=== PATIENT | female | born 1950 | race Caucasian/White ===

== ENCOUNTER 2017-02-04 02:01 | Inpatient (IN) ==
--- OUTSIDE RECORDS SUMMARY | 2017-02-04 02:11 | External Medical Summary | Referral Summary ---
:1950 Author Organization [facility] Address [address] [place] [address] Care Team Providers Name Role Phone Arnol Feliz Primary Care Physician Encounter VC Date(s): 02/21/16 - 02/21/16 [facility] [address] [place] [address] Discharge Disposition: 01-Home or Self Care Attending Physician: Mando Sam MD Admitting Physician: Mando Sam MD Vital Signs Most recent to oldest [Reference Range]: 1 Temperature Temporal Artery [36.3-37.8 degC] 36.7 degC (02/21/16 8:34 AM) Apical Heart Rate [60-100 bpm] 56 bpm *LOW* (02/21/16 8:34 AM) Heart Rate Monitored [60-100 bpm] 64 bpm (02/21/16 2:30 PM) Respiratory Rate [14-20 br/min] 13 br/min *LOW* (02/21/16 2:30 PM) Blood Pressure [90-140/60-90 mmHg] 113/73 mmHg (02/21/16 2:30 PM) Mean Arterial Pressure, Cuff 75 mmHg (02/21/16 2:30 PM) SpO2 94 % (02/21/16 2:30 PM) Remote Telemetry Initiated (02/21/16 10:45 AM) Problem List Condition Effective Dates Status Health Status Informant Abnormality of gait(Confirmed) 05/09/11 Active Acute pain(Confirmed) Active Allergies(Confirmed) Active Allergic rhinitis/hay fever(Confirmed) Active Anxiety disorder(Confirmed) Active CVA (cerebrovascular Active accident)(Confirmed) CAD (coronary artery Active disease)(Confirmed) Depression(Confirmed) Active Thyroid disease/goiter(Confirmed) Active Dyslipidemia(Confirmed) Active Dysplasia of vagina(Confirmed) Active Dysuria(Confirmed) Active Fibromyalgia(Confirmed) Active Gastric ulcer with hemorrhage but Active without obstruction(Confirmed) Stress incontinence(Confirmed) Active Headache(Confirmed) 05/09/11 Active Heart disease(Confirmed) Active History of abnormal cervical Pap Active smear(Confirmed)1 Hyperlipidemia(Confirmed) Active Hypertension(Confirmed) Active Hypothyroidism(Confirmed) Active Impaired skin integrity(Confirmed)2 Active Inflammatory neuropathy(Confirmed) Active Irregular heart rhythm(Confirmed) Active Irritable colon(Confirmed) Active Hypertonicity of bladder(Confirmed) Active Migraine headache without Active aura(Confirmed) Muscle weakness 05/09/11 Active (generalized)(Confirmed)3 Dependence on nicotine from Active cigarettes(Confirmed) Osteoarthrosis(Confirmed) Active PVD (peripheral vascular disease) with Active claudication(Confirmed) Rosacea (disorder)(Confirmed) Active Disturbance of skin Active sensation(Confirmed)4 Solar degeneration(Confirmed) Active S/P coronary artery stent Active placement(Confirmed) Tension headache(Confirmed) Active Tietze's disease(Confirmed) Active Tobacco use disorder(Confirmed) Active TIA (transient ischemic 09/09/11 Active attack)(Confirmed) Varicella without Active complication(Confirmed) 1post [id number] added automatically by system based on initiation of Impaired Skin Integrity Plan of Ovyv0Co side muscle [id number] sided numbness Allergies, Adverse Reactions, Alerts Substance Reaction Severity Status tetracycline Adverse Reaction Active Stomach Pain Medications acetaminophen 325 mg oral tablet 650 mg 2 tabs, Oral, q6hr, Pain Mild (1-3), 0 Refill(s) Start Date: 12/12/15 Status: Orderedalbuterol CFC free 90 mcg/inh inhalation aerosol 2-4 puffs, Inhalation, q4hr, as needed for wheezing, 0 Refill(s) Start Date: 12/27/14 Status: Orderedaspirin 81 mg oral tablet, chewable 1 tabs, Oral, Daily Start Date: 12/29/13 Status: Orderedbaclofen 10 mg oral tablet See Instructions, TAKE ONE TABLET BY MOUTH THREE TIMES DAILY, # 90 tabs, eRx: [id number], TAKE ONE TABLET BY MOUTH THREE TIMES DAILY Start Date: 02/01/16 Status: Orderedbumetanide 1 mg oral tablet See Instructions, TAKE ONE TABLET BY MOUTH ONCE DAILY, # 90 tabs, eRx: [id number], TAKE ONE TABLET BY MOUTH ONCE DAILY Start Date: 11/21/15 Status: OrderedbusPIRone 10 mg oral tablet 20 mg 2 tabs, Oral, TID, # 270 tabs, 0 Refill(s) Start Date: 11/16/14 Status: Orderedgabapentin 100 mg oral capsule See Instructions, 3 caps oral in the morning and 4 caps oral in the evening., # 210 tabs, 0 Refill(s), Pharmacy: [place] [facility] [id number], 3 caps oral in the morning and 4 caps oral in the evening. Start Date: 02/07/16 Status: OrderedhydrOXYzine 50 mg, Oral, BID, 0 Refill(s) Start Date: 08/17/15 Status: Orderedibuprofen 800 mg oral tablet See Instructions, TAKE ONE TABLET BY MOUTH TWICE DAILY, # 60 tabs, eRx: [place] [id number], TAKEONE TABLET BY MOUTH TWICE DAILY Start Date: 02/01/16 Status: Orderedlevothyroxine 88 mcg (0.088 mg) oral tablet See Instructions, TAKE ONE TABLET BY MOUTH ONCE DAILY, # 90 tabs, eRx: [place] [id number] Start Date: 02/13/16 Status: OrderedLipitor 20 mg oral tablet 20 mg 1 tabs, Oral, Bedtime (once a day), 0 Refill(s) Start Date: 08/17/15 Status: OrderedLutein 6 mg oral capsule 6 mg 1 caps, Oral, Daily, # 30 caps, 0 Refill(s) Start Date: 12/09/15 Status: Orderedmetoprolol tartrate 12.5 mg tab 12.5 mg, Oral, BID, 0 Refill(s) Start Date: 08/17/15 Status: OrderedMisc Medication DOCOSAHEXANOIC ACID (DHA) 100MG BY MOUTH DAILY, 0 Refill(s) Start Date: 08/17/15 Status: OrderedNitro-Dur 0.1 mg/hr transdermal film, extended release 1 patches, Topical, Daily, apply qam ,off, # 30 patches, 3 Refill(s), Pharmacy: [place] [id number] Start Date: 02/21/16 Status: Orderednitroglycerin 0.4 mg sublingual tablet 0.4 mg 1 tabs, SubLingual, q5min, as needed for chest pain, # 100 tabs, 0 Refill (s) Start Date: 08/17/15 Status: Orderedoxybutynin 5 mg oral tablet See Instructions, TAKE ONE TABLET BY MOUTH TWICE DAILY, # 60 tabs, eRx: [id number], TAKEONE TABLET BY MOUTH TWICE DAILY Start Date: 02/01/16 Status: OrderedPlavix 75 mg oral tablet 75 mg 1 tabs, Oral, Daily, 0 Refill(s) Start Date: 08/17/15 Status: Orderedpotassium chloride 20 mEq oral tablet, extended release 20 mEq 1 tabs, Oral, Daily, # 30 tabs, 3 Refill(s), Pharmacy: [id number], 1 tabs Oral Daily Start Date: 02/21/16 Status: OrderedViibryd 20 mg, Oral, Daily, 0 Refill(s) Start Date: 12/31/13 Status: Ordered Results Hematology Most recent to oldest [Reference Range]: 1 WBC [4.8-10.8 10*3/uL] 7.4 10*3/uL (02/21/16 8:10 AM) RBC [4.00-5.20] 4.32 (02/21/16 8:10 AM) Hgb [12.0-16.0 gm/dL] 12.3 gm/dL (02/21/16 8:10 AM) Hct [37.0-47.0 %] 37.5 % (02/21/16 8:10 AM) MCV [82.0-99.0 fL] 86.8 fL (02/21/16 8:10 AM) MCH [27.0-32.0 pg] 28.5 pg (02/21/16 8:10 AM) MCHC [32.0-36.0 gm/dL] 32.8 gm/dL (02/21/16 8:10 AM) RDW [11.5-14.5 %] 13.9 % (02/21/16 8:10 AM) Platelet [150-400 10*3/uL] 214 10*3/uL (02/21/16 8:10 AM) MPV [9.4-12.4 fL] 9.5 fL (02/21/16 8:10 AM) Chemistry Most recent to oldest [Reference Range]: 1 Sodium Lvl [136-144 mEq/L] 143 mEq/L (02/21/16 8:10 AM) Potassium Lvl [3.6-5.1 mEq/L] 3.3 mEq/L *LOW* (02/21/16 8:10 AM) Chloride [99-109 mEq/L] 107 mEq/L (02/21/16 8:10 AM) CO2 [22-32 mEq/L] 28 mEq/L (02/21/16 8:10 AM) AGAP [3-20] 8 (02/21/16 8:10 AM) BUN [4-20 mg/dL] 19 mg/dL (02/21/16 8:10 AM) Glucose Lvl [70-100 mg/dL] 101 mg/dL *HI* (02/21/16 8:10 AM) Creatinine Lvl [0.44-1.03 mg/dL] 0.88 mg/dL (02/21/16 8:10 AM) eGFR [>60] >60 1 (02/21/16 8:10 AM) Calcium Lvl [8.6-10.0 mg/dL] 9.2 mg/dL (02/21/16 8:10 AM) Troponin [<0.06 ng/mL] <0.05 ng/mL (02/21/16 8:10 AM) 1Result Comment: Multiply eGFR results by 1.21 for race. Immunizations Given and Recorded Vaccine Date Status Refusal Reason tetanus/diphth/pertuss (Tdap) adult/adol 03/23/11 Recorded influenza virus vaccine, inactivated1 11/11/15 Recorded influenza virus vaccine, inactivated 11/10/14 Recorded influenza virus vaccine, inactivated 11/13/13 Recorded influenza virus vaccine, inactivated 11/13/13 Recorded influenza virus vaccine, live 11/10/12 Given influenza virus vaccine, live 10/06/10 Given pneumococcal 23-polyvalent vaccine 03/23/11 Recorded 1Location History: [facility] Procedures Procedure Date Related Diagnosis Body Site Catheterization Left Heart with Coronary 02/21/16 Angiography (Right, Wrist)1 Angioplasty or Stent Percutaneous Transluminal 12/11/15 Coronary (Right, Groin)2 Catheterization Left Heart with Coronary 12/11/15 Angiography (Right, Groin)3 Catheterization Left Heart with Coronary 12/09/15 Angiography4 Angiogram Peripheral5 10/04/15 Hysterectomy 1985 Placement of stent in cardiac conduit S/P adenoidectomy S/P tonsillectomy 1auto-populated from documented surgical [id number] from documented surgical [id number] from documented surgical [id number] from documented surgical [id number] from documented surgical case Social History Social History Type Response Smoking Status Former smoker; Type: Cigarettes1 1quit 02/09 Assessment and Plan No data available for this section
--- OUTSIDE RECORDS SUMMARY | 2017-02-04 02:11 | External Medical Summary | Referral Summary ---
:1950 Author Organization [facility] Address [address] [place] [address] Care Team Providers Name Role Phone Feliz Arnol Barkley Primary Care Physician Encounter VC Date(s): 10/04/15 - 10/04/15 [facility] [address] [place] [address] [phone] Discharge Disposition: 01-Home or Self Care Attending Physician: Geoffrey Hopkins MD Admitting Physician: Geoffrey Hopkins MD Vital Signs Most recent to oldest [Reference Range]: 1 Temperature Skin [36-37 degC] 36.4 degC (10/04/15 10:16 AM) Temperature Temporal Artery [36.3-37.8 degC] 36.2 degC *LOW* (10/04/15 2:50 PM) Peripheral Pulse Rate [60-100 bpm] 57 bpm *LOW* (10/04/15 8:30 PM) Heart Rate Monitored [60-100 bpm] 50 bpm *LOW* (10/04/15 2:30 PM) Respiratory Rate [14-20 br/min] 14 br/min (10/04/15 8:30 PM) Blood Pressure [90-140/60-90 mmHg] 112/66 mmHg (10/04/15 8:30 PM) Mean Arterial Pressure, Cuff 75 mmHg (10/04/15 4:02 PM) SpO2 96 % (10/04/15 8:30 PM) Problem List Condition Effective Dates Status Health [...] smear(Confirmed)1 Hyperlipidemia(Confirmed) Active Hypertension(Confirmed) Active Hypothyroidism(Confirmed) Active Irregular heart rhythm(Confirmed) Active Irritable colon(Confirmed) Active Hypertonicity of bladder(Confirmed) Active Migraine headache without Active aura(Confirmed) Muscle weakness 05/09/11 Active (generalized)(Confirmed)2 Dependence on nicotine from Active cigarettes(Confirmed) Osteoarthrosis(Confirmed) Active PVD (peripheral vascular disease) with Active claudication(Confirmed) Rosacea (disorder)(Confirmed) Active Disturbance of skin Active sensation(Confirmed)3 Solar degeneration(Confirmed) Active S/P coronary artery stent Active placement(Confirmed) Tension headache(Confirmed) Active Tietze's disease(Confirmed) Active Tobacco use disorder(Confirmed) Active TIA (transient ischemic 09/09/11 Active attack)(Confirmed) Varicella without Active complication(Confirmed) 1post [id number] side muscle [id number] sided numbness Allergies, Adverse Reactions, Alerts Substance Reaction Severity Status tetracycline Adverse Reaction Active Stomach Pain Medications albuterol CFC free 90 mcg/inh inhalation aerosol 2-4 puffs, Inhalation, q4hr, as needed for wheezing, 0 Refill(s) Start Date: 12/27/14 Status: Orderedaspirin 81 mg oral tablet, chewable 1 tabs, Oral, Daily Start Date: 12/29/13 Status: Orderedbaclofen 10 mg oral tablet 10 mg 1 tabs, Oral, TID Start Date: 09/30/15 Status: Orderedbumetanide 1 mg oral tablet 1 mg 1 tabs, Oral, Daily Start Date: 09/30/15 Status: OrderedbusPIRone 10 mg oral tablet 20 mg 2 tabs, Oral, TID, # 270 tabs, 0 Refill(s) Start Date: 11/16/14 Status: Orderedgabapentin 300 mg oral capsule 300 mg 1 caps, Oral, TID, 0 Refill(s) Start Date: 08/17/15 Status: OrderedhydrOXYzine 50 mg, Oral, BID, 0 Refill(s) Start Date: 08/17/15 Status: Orderedibuprofen 800 mg oral tablet 800 mg 1 tabs, Oral, BID Start Date: 09/30/15 Status: OrderedLipitor 20 mg oral tablet 20 mg 1 tabs, Oral, Bedtime (once a day), 0 Refill(s) Start Date: 08/17/15 Status: Orderedmetoprolol tartrate 12.5 mg tab 12.5 mg, Oral, BID, 0 Refill(s) Start Date: 08/17/15 Status: OrderedMisc Medication DOCOSAHEXANOIC ACID (DHA) 100MG BY MOUTH DAILY, 0 Refill(s) Start Date: 08/17/15 Status: Orderednitroglycerin 0.4 mg sublingual tablet 0.4 mg 1 tabs, SubLingual, q5min, as needed for chest pain, # 100 tabs, 0 Refill (s) Start Date: 08/17/15 Status: Orderedoxybutynin 5 mg oral tablet See Instructions, TAKE ONE TABLET BY MOUTH TWICE DAILY, # 60 tabs, eRx: [id number], TAKEONE TABLET BY MOUTH TWICE DAILY Start Date: 10/03/15 Status: OrderedPlavix 75 mg oral tablet 75 mg 1 tabs, Oral, Daily, 0 Refill(s) Start Date: 08/17/15 Status: OrderedSynthroid 88 mcg (0.088 mg) oral tablet 88 mcg 1 tabs, Oral, Daily Start Date: 09/30/15 Status: OrderedViibryd 20 mg, Oral, Daily, 0 Refill(s) Start Date: 12/31/13 Status: Ordered Results Hematology Most recent to oldest [Reference Range]: 1 WBC [4.8-10.8 10*3/uL] 6.4 10*3/uL (10/04/15 8:13 AM) RBC [4.00-5.20] 4.56 (10/04/15 8:13 AM) Hgb [12.0-16.0 gm/dL] 13.1 gm/dL (10/04/15 8:13 AM) Hct [37.0-47.0 %] 37.6 % (10/04/15 8:13 AM) MCV [82.0-99.0 fL] 82.5 fL (10/04/15 8:13 AM) MCH [27.0-32.0 pg] 28.7 pg (10/04/15 8:13 AM) MCHC [32.0-36.0 gm/dL] 34.8 gm/dL (10/04/15 8:13 AM) RDW [11.5-14.5 %] 13.7 % (10/04/15 8:13 AM) Platelet [150-400 10*3/uL] 226 10*3/uL (10/04/15 8:13 AM) MPV [9.4-12.4 fL] 9.8 fL (10/04/15 8:13 AM) Chemistry Most recent to oldest [Reference Range]: 1 Sodium Lvl [136-144 mEq/L] 141 mEq/L (10/04/15 8:13 AM) Potassium Lvl [3.6-5.1 mEq/L] 3.0 mEq/L *LOW* (10/04/15 8:13 AM) Chloride [99-109 mEq/L] 106 mEq/L (10/04/15 8:13 AM) CO2 [22-32 mEq/L] 26 mEq/L (10/04/15 8:13 AM) AGAP [3-20] 9 (10/04/15 8:13 AM) BUN [4-20 mg/dL] 19 mg/dL (10/04/15 8:13 AM) Glucose Lvl [70-100 mg/dL] 107 mg/dL *HI* (10/04/15 8:13 AM) Creatinine Lvl [0.44-1.03 mg/dL] 0.97 mg/dL (10/04/15 8:13 AM) eGFR [>60] 58 1 *ABN* (10/04/15 8:13 AM) Calcium Lvl [8.6-10.0 mg/dL] 9.4 mg/dL (10/04/15 8:13 AM) Blood Glucose, Capillary [70-100 mg/dL] 104 mg/dL *HI* (10/04/15 7:58 AM) 1Result Comment: Multiply eGFR results by 1.21 for race. Immunizations Vaccine Date Refusal Reason tetanus/diphth/pertuss (Tdap) adult/adol 03/23/11 influenza virus vaccine, inactivated 11/10/14 influenza virus vaccine, inactivated 11/13/13 influenza virus vaccine, inactivated 11/13/13 influenza virus vaccine, live 11/10/12 influenza virus vaccine, live 10/06/10 pneumococcal 23-polyvalent vaccine 03/23/11 Procedures Procedure Date Related Diagnosis Body Site Angiogram Peripheral1 10/04/15 Hysterectomy 1986 Placement of stent in cardiac conduit S/P adenoidectomy S/P tonsillectomy 1auto-populated from documented surgical case Social History Social History Type Response Smoking Status Current every day smoker; Type: Cigarettes; Tobacco use per day : Less than Pack Assessment and Plan No data available for this section
--- OUTSIDE RECORDS SUMMARY | 2017-02-04 02:11 | External Medical Summary | Referral Summary ---
:1950 Author Organization [facility] Address [address] [place] [address] [place] [id number] Care Team Providers Name Role Phone Arnol Feliz Primary Care Physician Encounter VC Date(s): 09/05/15 - 09/05/15 [facility] [address] [place] [phone] [place] Discharge Disposition: 01-Home or Self Care Attending Physician: Arnol Feliz MD Admitting Physician: Arnol Feliz MD Vital Signs Most recent to oldest [Reference Range]: 1 Blood Pressure [90-140/60-90 mmHg] 136/62 mmHg (09/05/15 11:09 AM) Problem List Condition Effective Dates Status Health Status Informant Abnormality of gait(Confirmed) 05/09/11 Active Allergies(Confirmed) Active Allergic rhinitis/hay fever(Confirmed) Active [...] Active attack)(Confirmed) Varicella without Active complication(Confirmed) 1post [id number] side muscle [id number] sided numbness Allergies, Adverse Reactions, Alerts Substance Reaction Severity Status tetracycline Adverse Reaction Active Stomach Pain Medications albuterol CFC free 90 mcg/inh inhalation aerosol 2-4 puffs, Inhalation, q4hr, as needed for wheezing, 0 Refill(s) Start Date: 12/27/14 Status: Orderedaspirin 81 mg oral tablet, chewable 1 tabs, Oral, Daily Start Date: 12/29/13 Status: Orderedbaclofen 10 mg oral tablet See Instructions, 1 tabs Oral TID, # 90 tabs, eRx: [id number], 1 tabs Oral TID Start Date: 05/17/15 Status: Orderedbumetanide 1 mg oral tablet See Instructions, TAKE ONE TABLET BY MOUTH ONCE DAILY, # 90 tabs, eRx: [id number], TAKE ONE TABLET BY MOUTH ONCE DAILY Start Date: 08/22/15 Status: OrderedbusPIRone 10 mg oral tablet 20 [...] BY MOUTH TWICE DAILY, # 60 tabs, 1 Refill(s), Pharmacy: [id number], TAKE ONE TABLET BY MOUTH TWICE DAILY Start Date: 08/18/15 Status: Orderedlevothyroxine 88 mcg (0.088 mg) oral tablet See Instructions, TAKE ONE TABLET BY MOUTH EVERY DAY, # 90 tabs, 1 Refill(s), Pharmacy: [id number], TAKE ONE TABLET BY MOUTH EVERY DAY Start Date: 02/21/15 Status: OrderedLipitor 20 mg oral tablet 20 [...] MOUTH TWICE DAILY, # 60 tabs, eRx: [id number], TAKEONE TABLET BY MOUTH TWICE DAILY Start Date: 08/30/15 Status: OrderedPlavix 75 mg oral tablet mg tabs, Oral, Daily, 0 Refill(s) Start Date: 08/17/15 Status: OrderedViibryd 20 mg, Oral, Daily, 0 Refill(s) Start Date: 12/31/13 Status: Ordered Results No data available for this section Immunizations Vaccine Date Refusal Reason tetanus/diphth/pertuss (Tdap) adult/adol 03/23/11 influenza virus vaccine, inactivated 11/10/14 influenza virus vaccine, inactivated 11/13/13 influenza virus vaccine, inactivated 11/13/13 influenza virus vaccine, live 11/10/12 influenza virus vaccine, live 10/06/10 pneumococcal 23-polyvalent vaccine 03/23/11 Procedures Procedure Date Related Diagnosis Body Site Hysterectomy 1985 S/P adenoidectomy S/P tonsillectomy Social History Social History Type Response Smoking Status Current every day smoker; Type: Cigarettes; Tobacco use per day : Less than Pack Assessment and Plan Extracted from: Title: Ambulatory Patient Education Author: Arnol Feliz MD Date: Cardiovascular Cardiac Rehabilitation Cardiac rehabilitation is a medically supervised program that helps improve the health and well-being of people with heart problems. Cardiac rehabilitation includes exercise training, education, and cou nseling to help you get stronger and return to an active lifestyle. People who participate in cardiac rehabilitation programs get better faster and reduce future hospital stays. Cardiac rehabilitation programs can help when you have had the following conditions: Heart attack. Heart failure. Peripheral artery disease. Coronary artery disease. Angina. Lung or breathing problems. Cardiac rehabilitation programs are also used when you have the following procedures: Coronary artery bypass graft surgery. Heart valve replacement. Heart stent placement. Heart transplant. Aneurysm repair. CARDIAC REHABILITATION MAY HELP YOU: Reduce problems like chest pain and trouble breathing. Change risk factors that contribute to heart disease, such as: Smoking. High blood pressure. High cholesterol. Diabetes. Being out of shape or not active. Weighing more than 30% over your ideal weight. Diet. Improve your mental outlook so you feel: Less depressed or "blue." More hopeful. Better about yourself. More confident about taking care of yourself. Get support from health experts as well as other people with similar problems. Learn how to manage and understand your medicines. Teach your family about your condition and how to participate in your recovery. WHAT HAPPENS IN CARDIAC REHABILITATION? You will be assessed by a cardiac rehabilitation team. They will check your health history and do a physical exam. You may need blood tests, stress tests, and other evaluations. You may not start a cardiac rehabilitation program if: You develop angina with exercise or while at rest. You have severe heart failure that limits your activity. You have an abnormal heart rhythm at rest. You develop heart rhythm problems during exercise. You have high blood pressure that is not controlled. The cardiac rehabilitation team works with you to make a plan based on your health and goals. Everyone is unique, so each program is customized and your program may change as you progress. Members of a typical cardiac rehabilitation team may include such health professionals as: Doctors. Nurses. Dietitians. Psychologists. Exercise specialists. Physical and occupational therapists. A typical cardiac rehabilitation program is divided into phases. You advance from one phase to the next. Most cardiac rehabilitation sessions last for 60 minutes, 3 times a week. Phase One starts while you are still in the hospital. You may start by walking in your room and then in the pope. You may start some simple exercises with a therapist. Health care team members will give you information and ask you many questions. You may not be able to remember details, so have a family member or an advocate with you to help keep track of information. Phase Two begins when you go home or to another facility. This phase may last 8 to 12 weeks. You will travel to a cardiac rehabilitation center or a place where it is offered. Typically, you gradually i ncrease your activity while being closely watched by a nurse or therapist. Exercises may be a combination of strength or resistance training and "cardio" or aerobic movement on a treadmill or other mach spencer. Your condition will determine how often and how long these sessions will last. In phase two, you may learn how to cook healthy meals, control your blood sugar , and manage your medicines. You may need help with scheduling or planning how and when to take your medicines. Use a timer , divided pill box, or follow a form to make taking your medicines easier. Use the method that works best for you. Some medicines should not be taken with certain foods. If you take more than one blood pressure medicine, you may need to stagger the times you take them. Taking all your blood pressure medicine at the same time may lower your blood pressure too much. If you have questions about your medi cines, ask your health care provider questions until you understand. Phase Three continues for the rest of your life. There will be less supervision. You may still participate in cardiac rehabilitation activities or become part of a group in your community. You may benef it from talking to other people about your experience if they are facing similar challenges. How soon you drive, have sex, or return to work will depend on your condition. These decisions should be made by you and your health care provider. If you need help, ask for it. Find out where you can g et the help you need. Ask questions until you get answers and understand. SEEK IMMEDIATE MEDICAL CARE IF: Get medical help at once if you experience any of the following symptoms: Severe chest discomfort, especially if the pain is crushing or pressure- like and spreads to the arms, back, neck, or jaw. Do not wait to see if the pain will go away. Weakness or numbness in your face, arms, or legs, especially on one side of the body; slurred speech; confusion; sudden severe headache or loss of vision (all symptoms of stroke). You have shortness of breath. You are sweating and feel sick to your stomach (nausea). You feel dizzy or faint. You experience profound tiredness (fatigue). Call your local emergency service (911 in the [place] Do not drive yourself to the hospital. This information is not intended to replace advice given to you by your health care provider. Make sure you discuss any questions you have with your health care provider. Document Released: 11/20/2008 Document Revised: 03/04/2015 Document Reviewed: 05/18/2011 [facility] Patient Information 2016 [facility]. [facility] Femoral Endarterectomy Arteries carry blood from the heart to all parts of the body. The femoral artery delivers blood to the thigh and lower leg. This artery is found in the groin area. It can become clogged with a fatty sub stance (plaque). This condition is called peripheral arterial disease. This can cause your leg to ache. It might feel cold or numb. It can also cause pain in the calf of your leg when you walk (claudica tion). When the femoral artery gets clogged, it needs to be cleaned out. Surgery to clean it out (endarterectomy) is needed. LET YOUR CAREGIVER KNOW ABOUT: Allergies to food or medicine. Medicines taken, including vitamins, herbs, eyedrops, xdsn-hfv-pctnmcs medicines, and creams. Use of steroids (by mouth or creams). Previous problems with anesthetics or numbing medicines. History of bleeding problems or blood clots. Previous surgery. Other health problems, including diabetes and kidney problems. Possibility of , if this applies. RISKS AND COMPLICATIONS Problems usually do not develop after a femoral endarterectomy. However, possible risks include: Bleeding that continues. Infection. Nerve damage. Blood clots. These can form in the legs. Clots that break loose could travel to the heart, lungs, or brain. Plaque can build up again, causing another blockage. This can happen months or years after your surgery. BEFORE THE PROCEDURE A medical evaluation will be done. This may include: A physical examination. This includes questions about your overall health, today and in the past. Your blood pressure and heart rate will be checked. Blood tests. Doppler ultrasonography. This test uses sound waves to check blood flow through your femoral artery and leg. Angiography. This is a type of X-ray. A dye is put in your blood so that it will show up on the X-ray. Talking with an anesthesiologist. Usually, a medicine that will make you sleep (general anesthesia) is used. However, if spinal anesthesia is used, you will be numb from the waist down. You will be groggy but awake during the procedure. Ask your caregiver what to expect. You may need to take medicine to prevent blood clots. Aspirin or blood thinners (anticoagulants) are used for this. You will need to sign a legal paper that gives permission for the surgery (informed consent). The day before the surgery, eat only a light dinner. Do not eat or drink anything for at least 6 hours before the surgery. Ask your caregiver if it is okay to take any needed medicines with a sip of water. Arrive at least 1 hour before the surgery, or as told by your caregiver. This will give you time to check in and fill out any needed paperwork. PROCEDURE Small monitors will be placed on your body. They are used to check your heart, blood pressure, and oxygen level. You will be given an intravenous (IV) line. Medicine will flow directly into your body through the IV. If general anesthesia is used, a tube will be put in your throat. This helps you breathe during the surgery. Your groin area will be cleaned with a germ-killing solution. Once you are asleep, the surgeon will make a cut (incision) in the groin area above the femoral artery. The incision is usually a few inches long. A clamp may be put on the artery above and below the blockage. This stops blood from flowing through the area. The artery is cut open. The plaque is stripped away from the inner holguin of the artery. During the surgery, angiography may be done. This helps the surgeon tell how far the blockage goes. Later on, it can show whether all of the plaque is gone. The artery will be closed. Then, the clamp is released. Blood can flow through the artery again. The surgeon will close the incision. Karthik or stitches will be used. A bandage with medicine (dressing) will be placed over the incision. AFTER THE PROCEDURE You will stay in a recovery area until the anesthesia wears off. Your blood pressure and pulse will be checked. Then, you will be taken to a hospital room. You may continue to get fluids through the IV for awhile. Some pain is normal. You will probably be given pain medicine while in the recovery area. If your pain gets worse, be sure to tell your caregiver. Angiography may be done again before you go home. This is to make sure the blood is flowing through the artery like it should. Most people stay in the hospital for 1 or 2 days after this procedure. HOME CARE INSTRUCTIONS Take the medicines your caregiver has prescribed. Follow the directions carefully. Medicines may include blood thinners and pain medicine. Do not take kfuh-ysz-qxwznxj pain medicine unless your caregiver says it is okay. Do not drive if you are taking narcotic pain medicines. Keep the incision dry for a few days after surgery. Ask when it will be okay to take a shower. Do not take a tub bath for at least 2 weeks. You will need to return to have your stitches (sutures) or karthik taken out. This is usually done about a week after your surgery. Walk. This is important. It will help keep blood clots from forming. Go back to your normal routine slowly. Ask your caregiver if you have questions about a specific activity. Ask when it will be okay for you to drive. Ask your caregiver when you can go back to work. This will depend on the type of work you do. Do not smoke. SEEK MEDICAL CARE IF: You have any questions about medicines. Pain continues, even after taking pain medicine. You have pain or cramps in your leg while walking. You have an oral temperature above 102 F (38.9 C). SEEK IMMEDIATE MEDICAL CARE IF: Pain gets much worse. You have shortness of breath. You have chest pain. The area around the incision becomes red and swells. Blood or other liquid leaks from the incision. Your leg becomes red, swollen, or sore. Your leg or foot changes color or becomes numb. You have an oral temperature above 102 F (38.9 C), not controlled by medicine. MAKE SURE YOU: Understand these instructions. Will watch your condition. Will get help right away if you are not doing well or get worse. This information is not intended to replace advice given to you by your health care provider. Make sure you discuss any questions you have with your health care provider. Document Released: 05/08/2010 Document Revised: 05/05/2012 Document Reviewed: 05/08/2010 [facility] Patient Information 2016 [facility]. Surgery Femoral Popliteal Bypass, Care After Refer to this sheet in the next few weeks. These instructions provide you with information on caring for yourself after your procedure. Your health care provider may also give you more specific instruct ions. Your treatment has been planned according to current medical practices, but problems sometimes occur. Call your health care provider if you have any problems or questions after your procedure. HOME CARE INSTRUCTIONS Take medicines as told by your health care provider. Clean your incision site as told by your health care provider. Keep the area around your incision dry unless told by your health care provider. Ask your health care provider when it is okay to shower. Do not take a bath, swim, or soak in a hot tub until your incision has completely healed. Keep the area around the incision clean. This will help decrease your risk of infection. Check your incision site every day. Let your health care provider know if you see any swelling, redness, or anything leaking from the incision. Exercise as told by your health care provider. Avoid strenuous physical activity for the first few weeks. This is anything that requires great effort or energy. Raise (elevate) your legs when sitting. Ask your health care provider when you can return to work. The type of work you do will make a difference. Do not drive while taking pain medicines. Ask your health care provider when it is safe to start driving. Take all medicines as directed by your health care provider. Keep all your follow-up appointments with your health care provider. For long-term success: Control your blood pressure. Take prescription medicines as told by your health care provider. Manage diabetes, if you have it. Do not smoke. Eat healthy foods. Ask your health care provider for suggestions, or talk with a dietitian. Get regular exercise. Talk with your health care provider before starting any new physical activity. SEEK MEDICAL CARE IF: You have redness and swelling around your incision site. You continue to have pain in your leg, even after taking pain medicine. You have any questions about your medicines. You have nausea or vomiting. You have abnormal bowel habits such as having a difficult time having a bowel movement (constipation) or having loose stools (diarrhea). You feel weak and tired. You are too tired to walk every day. SEEK IMMEDIATE MEDICAL CARE IF: Your leg becomes pale, cold, blue, tingly, or has no feeling. You have yellow or chaudhry fluid coming from your incision site. You have bleeding from the incision site. You have severe pain in your leg that does not go away, even after you have taken pain medicine. You have trouble breathing. You have chest pain. You have a fever. MAKE SURE YOU: Understand these instructions. Will watch your condition. Will get help right away if you are not doing well or get worse. This information is not intended to replace advice given to you by your health care provider. Make sure you discuss any questions you have with your health care provider. Document Released: 12/09/2009 Document Revised: 02/16/2014 Document Reviewed: 12/09/2009 [employer] Patient Information 2016 [employer]. No follow up information was provided. Extracted from: Title: Office Visit Note Author: Arnol Feliz MD Date: 09/05/15 Assessment/Plan CAD (coronary artery disease) Stent was placed. Ordered: Office Visit Level 4 Est 84771 Dependence on nicotine from cigarettes Encourage to stop the smoking. Ordered: Office Visit Level 4 Est 15069 Hyperlipidemia Will need lab. Ordered: Office Visit Level 4 Est 04197 Hypertension Continue with the current medications. Ordered: Office Visit Level 4 Est 48241 PVD (peripheral vascular disease) with claudication Patient to see Dr. Manas Saravia. Ordered: Office Visit Level 4 Est 26598
--- OUTSIDE RECORDS SUMMARY | 2017-02-04 02:11 | External Medical Summary | Referral Summary ---
:1950 Author Care Team Providers Name Role Phone Arnol Feliz Primary Care Physician Encounter [facility] [id number] Date(s): 06/12/14 - 06/12/14 Via [address], [address] [place] [id number] Discharge Diagnosis: Oral candidiasis Discharge Diagnosis: Glossitis Discharge Diagnosis: Anxiety disorder Discharge Diagnosis: CAD (coronary artery disease) Discharge Diagnosis: CVA (cerebrovascular accident) Discharge Diagnosis: Disturbance of skin sensation Discharge Diagnosis: Hypertension Discharge Disposition: Home or Self Care Attending Physician: Geoffrey Scott MD Admitting Physician: Geoffrey Scott MD Referring Physician: Arnol Feliz MD Vital Signs Most recent to oldest [Reference Range]: 1 Temperature Tympanic [36.6-38.1 degC] 36.7 degC (06/12/14 9:22 AM) Apical Heart Rate [60-100 bpm] 68 bpm (06/12/14 9:22 AM) Blood Pressure [90-140/60-90 mmHg] 124/76 mmHg (06/12/14 9:22 AM) Most recent to oldest [Reference Range]: 1 SpO2 98 % (06/12/14 9:22 AM) Problem List Condition Effective Dates Status [...] Active aura(Confirmed) Muscle weakness 05/09/11 Active (generalized)(Confirmed)2 Osteoarthrosis(Confirmed) Active Rosacea (disorder)(Confirmed) Active Disturbance of skin Active sensation(Confirmed)3 Solar degeneration(Confirmed) Active Tension headache(Confirmed) Active Tietze's disease(Confirmed) Active Tobacco use disorder(Confirmed) Active TIA (transient ischemic 09/09/11 Active attack)(Confirmed) Varicella without Active complication(Confirmed) 1post [id number] side muscle [id number] sided numbness Allergies, Adverse Reactions, Alerts Substance Reaction Severity Status tetracycline Adverse Reaction Active Stomach Pain Medications aspirin 81 mg oral tablet, chewable 1 tabs, Oral, Daily Start Date: 12/29/13 Status: Orderedbaclofen 10 mg oral tablet See Instructions, TAKE ONE TABLET BY MOUTH THREE TIMES A DAY, # 90 tabs, 1 Refill(s), eRx: [facility] #[id number], TAKE ONE TABLET BY MOUTH THREE TIMES A DAY Special Instructions: TAKE ONE TABLET BY MOUTH THREE TIMES A DAY Start Date: 04/26/14 Status: OrderedBactroban 2% nasal ointment 1 estevan, Nasal, BID, # 1 g, 0 Refill(s), Pharmacy: [facility] 1982 Start Date: 03/18/14 Status: Orderedbumetanide 1 mg oral tablet See Instructions, TAKE ONE TABLET BY MOUTH EVERY DAY, # 30 tabs, eRx: [facility] #[id number], TAKEONE TABLET BY MOUTH EVERY DAY Special Instructions: TAKE ONE TABLET BY MOUTH EVERY DAY Start Date: 05/26/14 Status: OrderedDiflucan 200 mg oral tablet 1 tabs, Oral, Daily, X 5 days, # 5 tabs, 0 Refill(s), Pharmacy: [id number], 1 tabs Oral Daily,x5 days Start Date: 06/12/14 Stop Date: 06/17/14 Status: OrderedhydrOXYzine hydrochloride 25 mg oral tablet 1 tabs, Oral, TID, # 30 tabs, 0 Refill(s) Start Date: 06/12/14 Status: OrderedIBU 800 mg oral tablet See Instructions, TAKE ONE TABLET BY MOUTH TWICE A DAY, # 60 tabs, 2 Refill(s), eRx: [id number], TAKE ONE TABLET BY MOUTH TWICE A DAY Special Instructions: TAKE ONE TABLET BY MOUTH TWICE A DAY Start Date: 05/11/14 Status: OrderedIBU 800 mg oral tablet See Instructions, TAKE ONE TABLET BY MOUTH TWICE A DAY, # 60 tabs, eRx: [facility] #[id number], TAKE ONE TABLET BY MOUTH TWICE A DAY Special Instructions: TAKE ONE TABLET BY MOUTH TWICE A DAY Start Date: 04/06/14 Status: Orderedlevothyroxine 88 mcg (0.088 mg) oral tablet See Instructions, TAKE ONE TABLET BY MOUTH EVERY DAY, # 90 tabs, 2 Refill(s), eRx: [facility] #[id number], TAKE ONE TABLET BY MOUTH EVERY DAY Special Instructions: TAKE ONE TABLET BY MOUTH EVERY DAY Start Date: 02/15/14 Status: OrderedLyrica 75 mg oral capsule caps, Oral, BID, 0 Refill(s) Start Date: 01/18/14 Status: Orderedoxybutynin 5 mg oral tablet See Instructions, TAKE ONE TABLET BY MOUTH TWICE A DAY, REPLACES VESICARE, # 60 tabs, eRx: [facility] #[id number], TAKE ONE TABLET BY MOUTH TWICE A DAY, REPLACES VESICARE Special Instructions: TAKE ONE TABLET BY MOUTH TWICE A DAY, REPLACES VESICARE Start Date: 05/17/14 Status: OrderedViibryd 20 mg, Oral, Daily, 0 Refill(s) Start Date: 12/31/13 Status: Ordered Results No data available for this section Immunizations Vaccine Date Refusal Reason tetanus/diphth/pertuss (Tdap) adult/adol 03/23/11 influenza virus vaccine, inactivated 11/13/13 influenza virus vaccine, inactivated 11/13/13 influenza virus vaccine, live 11/10/12 influenza virus vaccine, live 10/06/10 pneumococcal 23-polyvalent vaccine 03/23/11 Procedures Procedure Date Related Diagnosis Body Site Hysterectomy 1985 S/P adenoidectomy S/P tonsillectomy Social History Social History Type Response Smoking Status Current every day smoker; Type: Cigarettes; Tobacco use per day : 1 Pack Assessment and Plan Extracted from: Title: Ambulatory Patient Education Author: Geoffrey Scott MD Date: Family Medicine Arterial Hypertension Arterial hypertension (high blood pressure ) is a condition of elevated pressure in your blood vessels. Hypertension over a long period of time is a risk factor for strokes, heart attacks, and heart ralph lure. It is also the leading cause of kidney (renal ) failure. CAUSES In Adults -- Over 90% of all hypertension has no known cause. This is called essential or primary hypertension. In the other 10% of people with hypertension, the increase in blood pressure is cause d by another disorder. This is called secondary hypertension . Important causes of secondary hypertension are: Heavy alcohol use. Obstructive sleep apnea. Hyperaldosterosim (Conn's syndrome). Steroid use. Chronic kidney failure. Hyperparathyroidism. Medications. Renal artery stenosis. Pheochromocytoma. Darlington's disease. Coarctation of the aorta. Scleroderma renal crisis. Licorice (in excessive amounts). Drugs (cocaine, methamphetamine). Your caregiver can explain any items above that apply to you. In Children -- Secondary hypertension is more common and should always be considered. -- Few women of childbearing age have high blood pressure. However, up to 10% of them develop hypertension of . Generally, this will not harm the woman. It may be a sign of 3 com plications of : preeclampsia, HELLP syndrome, and eclampsia. Follow up and control with medication is necessary. SYMPTOMS This condition normally does not produce any noticeable symptoms. It is usually found during a routine exam. Malignant hypertension is a late problem of high blood pressure. It may have the following symptoms: Headaches. Blurred vision. End-organ damage (this means your kidneys, heart, lungs, and other organs are being damaged). Stressful situations can increase the blood pressure. If a person with normal blood pressure has their blood pressure go up while being seen by their caregiver, this is often termed "white coat hyp ertension." Its importance is not known. It may be related with eventually developing hypertension or complications of hypertension. Hypertension is often confused with mental tension, stress, and anxiety. DIAGNOSIS The diagnosis is made by 3 separate blood pressure measurements. They are taken at least 1 week apart from each other. If there is organ damage from hypertension, the diagnosis may be made without repeat measurements. Hypertension is usually identified by having blood pressure readings: Above 140/90 mmHg measured in both arms, at 3 separate times, over a couple weeks. Over 130/80 mmHg should be considered a risk factor and may require treatment in patients with diabetes. Blood pressure readings over 120/80 mmHg are called "pre-hypertension" even in non-diabetic patients. To get a true blood pressure measurement, use the following guidelines. Be aware of the factors that can alter blood pressure readings. Take measurements at least 1 hour after caffeine. Take measurements 30 minutes after smoking and without any stress. This is another reason to quit smoking it raises your blood pressure. Use a proper cuff size. Ask your caregiver if you are not sure about your cuff size. Most home blood pressure cuffs are automatic. They will measure systolic and diastolic pressures. The systolic pressure is the pressure reading at the start of sounds. Diastolic pressure is the pre ssure at which the sounds disappear. If you are elderly, measure pressures in multiple postures. Try sitting, lying or standing. Sit at rest for a minimum of 5 minutes before taking measurements. You should not be on any medications like decongestants. These are found in many cold medications. Record your blood pressure readings and review them with your caregiver. If you have hypertension: Your caregiver may do tests to be sure you do not have secondary hypertension (see "causes" above). Your caregiver may also look for signs of metabolic syndrome. This is also called Syndrome X or Insulin Resistance Syndrome. You may have this syndrome if you have type 2 diabetes, abdominal obesit y, and abnormal blood lipids in addition to hypertension. Your caregiver will take your medical and family history and perform a physical exam. Diagnostic tests may include blood tests (for glucose, cholesterol, potassium, and kidney function), a urinalysis, or an EKG. Other tests may also be necessary depending on your condition. PREVENTION There are important lifestyle issues that you can adopt to reduce your chance of developing hypertension: Maintain a normal weight. Limit the amount of salt (sodium ) in your diet. Exercise often. Limit alcohol intake. Get enough potassium in your diet. Discuss specific advice with your caregiver. Follow a DASH diet (dietary approaches to stop hypertension). This diet is rich in fruits, vegetables, and low-fat dairy products, and avoids certain fats. PROGNOSIS Essential hypertension cannot be cured. Lifestyle changes and medical treatment can lower blood pressure and reduce complications. The prognosis of secondary hypertension depends on the underlying cause . Many people whose hypertension is controlled with medicine or lifestyle changes can live a normal, healthy life. RISKS AND COMPLICATIONS While high blood pressure alone is not an illness, it often requires treatment due to its short- and long-term effects on many organs. Hypertension increases your risk for: CVAs or strokes (cerebrovascular accident ). Heart failure due to chronically high blood pressure (hypertensive cardiomyopathy ). Heart attack (myocardial infarction ). Damage to the retina (hypertensive retinopathy ). Kidney failure (hypertensive nephropathy ). Your caregiver can explain list items above that apply to you. Treatment of hypertension can significantly reduce the risk of complications. TREATMENT For overweight patients, weight loss and regular exercise are recommended. Physical fitness lowers blood pressure. Mild hypertension is usually treated with diet and exercise. A diet rich in fruits and vegetables, fat-free dairy products, and foods low in fat and salt (sodium ) can help lower blood pressure. De creasing salt intake decreases blood pressure in a 1/3 of people. Stop smoking if you are a smoker. The steps above are highly effective in reducing blood pressure. While these actions are easy to suggest, they are difficult to achieve. Most patients with moderate or severe hypertension end up requiri ng medications to bring their blood pressure down to a normal level. There are several classes of medications for treatment. Blood pressure pills ( antihypertensives ) will lower blood pressure by their different actions. Lowering the blood pressure by 10 mmHg may decrease the risk of complications by as much as 25%. The goal of treatment is effective blood pressure control. This will reduce your risk for complications. Your caregiver will help you determine the best treatment for you according to your lifestyle. Wh at is excellent treatment for one person, may not be for you. HOME CARE INSTRUCTIONS Do not smoke. Follow the lifestyle changes outlined in the "Prevention" section. If you are on medications, follow the directions carefully. Blood pressure medications must be taken as prescribed. Skipping doses reduces their benefit. It also puts you at risk for problems. Follow up with your caregiver, as directed. If you are asked to monitor your blood pressure at home, follow the guidelines in the "Diagnosis" section above. SEEK MEDICAL CARE IF: You think you are having medication side effects. You have recurrent headaches or lightheadedness. You have swelling in your ankles. You have trouble with your vision. SEEK IMMEDIATE MEDICAL CARE IF: You have sudden onset of chest pain or pressure, difficulty breathing, or other symptoms of a heart attack. You have a severe headache. You have symptoms of a stroke (such as sudden weakness, difficulty speaking, difficulty walking). MAKE SURE YOU: Understand these instructions. Will watch your condition. Will get help right away if you are not doing well or get worse. Document Released: 02/11/2006 Document Revised: 05/05/2012 Document Reviewed: 09/11/2007 [employer] Patient Information 2014 [employer]. No follow up information was provided. Extracted from: Title: Office Visit Note Author: Geoffrey Scott MD Date: 06/12/14 Assessment/Plan Anxiety disorder This issue is stable and appropriate refills, lab, and f/u have been discussed. F/U with PCP/Dr. VILLANUEVA. CAD (coronary artery disease) This issue is stable and appropriate refills, lab, and f/u have been discussed. CVA (cerebrovascular accident) This issue is stable and appropriate refills, lab, and f/u have been discussed. Disturbance of skin sensation Trial of diflucan 200mg po daily for five days. Glossitis See above. Hypertension This issue is stable and appropriate refills, lab, and f/u have been discussed. The patient reports their blood pressure has been stable at home and is not having any significant or related problems. There has been no chest pain, chest pressure, soa/marie. Oral candidiasis See above, trial of diflucan. F/U if not resolved. Orders: fluconazole, 1 tabs, Oral, Daily, X 5 days, # 5 tabs, 0 Refill(s), Pharmacy: [id number], 1 tabs Oral Daily,x5 days
--- OUTSIDE RECORDS SUMMARY | 2017-02-04 02:11 | External Medical Summary | Referral Summary ---
:1950 Author Organization [facility], [facility] Address [address] [place] [address] [place] [address] Care Team Providers Name Role Phone Arnol Feliz Primary Care Physician Encounter VC Date(s): 11/16/14 - 11/16/14 [facility] [address] [place] [phone] [place] Discharge Disposition: 01-Home or Self Care Attending Physician: Arnol Feliz MD Admitting Physician: Arnol Feliz MD Vital Signs Most recent to oldest [Reference Range]: 1 Blood Pressure [90-140/60-90 mmHg] 124/72 mmHg (11/16/14 10:17 AM) Problem List Condition Effective Dates Status [...] Active attack)(Confirmed) Varicella without Active complication(Confirmed) 1post [id number] side muscle [id number] sided numbness Allergies, Adverse Reactions, Alerts Substance [...] tabs Oral TID, # 90 tabs, eRx: [facility] 2428, 1 tabs Oral TID Start Date: 05/17/15 Status: Orderedbumetanide 1 mg oral tablet See Instructions, TAKE ONE TABLET BY MOUTH DAILY,, # 90 tabs, eRx: [facility] 2428, TAKE ONE TABLET BY MOUTH DAILY Start Date: 05/17/15 Status: OrderedbusPIRone 10 mg oral tablet 20 mg 2 tabs, Oral, TID, # 270 tabs, 0 Refill(s) Start Date: 11/16/14 Status: Orderedibuprofen 800 mg oral tablet See Instructions, TAKE ONE TABLET BY MOUTH TWICE DAILY, # 60 tabs, eRx: [facility] 2428, TAKEONE TABLET BY MOUTH TWICE DAILY Start Date: 05/26/15 Status: Orderedlevothyroxine 88 mcg (0.088 mg) oral tablet See Instructions, TAKE ONE TABLET BY MOUTH EVERY DAY, # 90 tabs, 1 Refill(s), Pharmacy: [facility] 2428, TAKE ONE TABLET BY MOUTH EVERY DAY Start Date: 02/21/15 Status: OrderedLyrica 75 mg oral capsule 75 mg 1 caps, Oral, Daily, 0 Refill(s) Start Date: 01/18/14 Status: Orderedoxybutynin 5 mg oral tablet See Instructions, TAKE ONE TABLET BY MOUTH TWICE A DAY, REPLACES VESICARE, # 60 tabs, 2 Refill(s), eRx: [facility] #[id number], TAKE ONE TABLET BY MOUTH TWICE A DAY, REPLACES VESICARE Start Date: 02/07/15 Status: OrderedViibryd 20 mg, Oral, Daily, 0 [...] Patient Education Author: Arnol Feliz MD Date: Family Medicine Myocardial Infarction A myocardial infarction (LA) is damage to the heart that is not reversible. It is also called a heart attack. An LA usually occurs when a heart (coronary) artery becomes blocked or narrowed. This cuts o ff the blood supply to the heart. When one or more of the heart (coronary) arteries becomes blocked, that area of the heart begins to . This causes pain felt during an LA. If you think you might be having an LA, call your local emergency services immediately (911 in [place] It is recommended that you chew and swallow 3 non- enteric coated baby aspirin if you do not have an aspirin allergy. Do not drive yourself to the hospital or wait to see if your symptoms go away. The sooner LA is treated, the greater the amount of heart muscle saved. Time is muscle. It can save your life. CAUSES An LA can occur from: A gradual buildup of a fatty substance called plaque. When plaque builds up in the arteries, this condition is called atherosclerosis. This buildup can block or reduce the blood supply to the heart artery(s). A sudden plaque rupture within a heart artery that causes a blood clot ( thrombus). A blood clot can block the heart artery which does not allow blood flow to the heart. A severe tightening (spasm) of the heart artery. This is a less common cause of a heart attack. When a heart artery spasms, it cuts off blood flow through the artery. Spasms can occur in heart arteries that do not have atherosclerosis. RISK FACTORS People at risk for an LA usually have one or more risk factors, such as: High blood pressure. High cholesterol. Smoking. Gender. Men have a higher heart attack risk. Overweight/obesity. Age. Family history. Lack of exercise. Diabetes. Stress. Excessive alcohol use. Street drug use (cocaine and methamphetamines). SYMPTOMS LA symptoms can vary, such as: In both men and women, LA symptoms can include the following: Chest pain. The chest pain may feel like a crushing, squeezing, or "pressure" type feeling. LA pain can be "referred," meaning pain can be caused in one part of the body but felt in another part of the body. Referred LA pain may occur in the left arm, neck, or jaw. Pain may even be felt in the right arm. Shortness of breath (dyspnea). Heartburn or indigestion with or without vomiting, shortness of breath, or sweating (diaphoresis). Sudden, cold sweats. Sudden lightheadedness. Upper back pain. Women can have unique LA symptoms, such as: Unexplained feelings of nervousness or anxiety. Discomfort between the shoulder blades (scapula) or upper back. Tingling in the hands and arms. In elderly people (regardless of gender), LA symptoms can be subtle, such as: Sweating (diaphoresis). Shortness of breath (dyspnea). General tiredness (fatigue) or not feeling well (malaise). DIAGNOSIS Diagnosis of an LA involves several tests such as: An assessment of your vital signs such as heart rhythm, blood pressure, respiratory rate, and oxygen level. An EKG (ECG) to look at the electrical activity of your heart. Blood tests called cardiac markers are drawn at scheduled times to measure proteins or enzymes released by the damaged heart muscle. A chest X-ray. An echocardiogram to evaluate heart motion and blood flow. Coronary angiography (cardiac catheterization). This is a diagnostic procedure to look at the heart arteries. TREATMENT Acute Intervention. For an LA, the national standard in the [place] is to have an acute intervention in under 90 minutes from the time you get to the hospital. An acute intervention is a special p rocedure to open up the heart arteries. It is done in a treatment room called a "catheterization lab" (cath lab manager). Some hospitals do no have a cath lab manager. If you are having an LA and the hospital does not have a cath lab manager, the standard is to transport you to a hospital that has one. In the cath lab manager, acute intervention includes: Angioplasty. An angioplasty involves inserting a thin, flexible tube ( catheter) into an artery in either your groin or wrist. The catheter is threaded to the heart arteries. A balloon at the end of the catheter is inflated to open a narrowed or blocked heart artery. During an angioplasty procedure, a small mesh tube (stent) may be used to keep the heart artery open. Depending on your condition an d health history, one of two types of stents may be placed: Drug-eluting stent (PERFECTO). A PERFECTO is coated with a medicine to prevent scar tissue from growing over the stent. With drug-eluting stents, blood thinning medicine will need to be taken for up to a year. Bare metal stent. This type of stent has no special coating to keep tissue from growing over it. This type of stent is used if you cannot take blood thinning medicine for a prolonged time or you ne ed surgery in the near future. After a bare metal stent is placed, blood thinning medicine will need to be taken for about a month. If you are taking blood thinning medicine (anti-platelet therapy) after stent placement, do not stop taking it unless your caregiver says it is okay to do so. Make sure you understand how long you need to take the medicine. Surgical Intervention If an acute intervention is not successful, surgery may be needed: Open heart surgery (coronary artery bypass graft, CABG). CABG takes a vein (saphenous vein) from your leg. The vein is then attached to the blocked heart artery which bypasses the blockage. This then allows blood flow to the heart muscle. Additional Interventions A "clot buster" medicine (thrombolytic) may be given. This medicine can help break up a clot in the heart artery. This medicine may be given if a person cannot get to a cath lab manager right away. Intra-aortic balloon pump (IABP). If you have suffered a very severe LA and are too unstable to go to the cath lab manager or to surgery, an IABP may be used. This is a temporary mechanical device used to increase blood flow to the heart and reduce the workload of the heart until you are stable enough to go to the cath lab manager or surgery. HOME CARE INSTRUCTIONS After an LA, you may need the following: Medicine. Take medicine as directed by your caregiver. Medicines after an LA may: Keep your blood from clotting easily (blood thinners). Control your blood pressure. Help lower your cholesterol. Control abnormal heart rhythms. Lifestyle changes. Under the guidance of your caregiver, lifestyle changes include: Quitting smoking, if you smoke. Your caregiver can help you quit. Being physically active. Maintaining a healthy weight. Eating a heart healthy diet. A dietitian can help you learn healthy eating options. Managing diabetes. Reducing stress. Limiting alcohol intake. SEEK IMMEDIATE MEDICAL CARE IF: You have severe chest pain, especially if the pain is crushing or pressure -like and spreads to the arms, back, neck, or jaw. This is an emergency. Do not wait to see if the pain will go away. Get m edical help at once. Call your local emergency services (911 in the [place] Do not drive yourself to the hospital. You have shortness of breath during rest, sleep, or with activity. You have sudden sweating or clammy skin. You feel sick to your stomach (nauseous) and throw up (vomit). You suddenly become lightheaded or dizzy. You feel your heart beating rapidly or you notice "skipped" beats. MAKE SURE YOU: Understand these instructions. Will watch your condition. Will get help right away if you are not doing well or get worse. Document Released: 02/11/2006 Document Revised: 02/16/2014 Document Reviewed: 04/16/2014 [facility] Patient Information 2015 [facility]. This information is not intended to replace advice given to you by your health care provider. Make sure you discuss any questions you have with your health care provider. How to Take Your Blood Pressure HOW DO I GET A BLOOD PRESSURE MACHINE? You can buy an electronic home blood pressure machine at your local pharmacy. Insurance will sometimes cover the cost if you have a prescription. Ask your doctor what type of machine is best for you. There are different machines for your arm and your wrist. If you decide to buy a machine to check your blood pressure on your arm, first check the size of your arm so you can buy the right size cuff. To check the size of your arm: Use a measuring tape that shows both inches and centimeters. Wrap the measuring tape around the upper-middle part of your arm. You may need someone to help you measure. Write down your arm measurement in both inches and centimeters. To measure your blood pressure correctly, it is important to have the right size cuff. If your arm is up to 13 inches (up to 34 centimeters), get an adult cuff size. If your arm is 13 to 17 inches (35 to 44 centimeters), get a large adult cuff size. If your arm is 17 to 20 inches (45 to 52 centimeters), get an adult thigh cuff. WHAT DO THE NUMBERS MEAN? There are two numbers that make up your blood pressure. For example: 120/ 80. The first number (120 in our example) is called the "systolic pressure." It is a measure of the pressure in your blood vessels when your heart is pumping blood. The second number (80 in our example) is called the "diastolic pressure." It is a measure of the pressure in your blood vessels when your heart is resting between beats. Your doctor will tell you what your blood pressure should be. WHAT SHOULD I DO BEFORE I CHECK MY BLOOD PRESSURE? Try to rest or relax for at least 30 minutes before you check your blood pressure. Do not smoke. Do not have any drinks with caffeine, such as: Soda. Coffee. Tea. Check your blood pressure in a quiet room. Sit down and stretch out your arm on a table. Keep your arm at about the level of your heart. Let your arm relax. Make sure that your legs are not crossed. HOW DO I CHECK MY BLOOD PRESSURE? Follow the directions that came with your machine. Make sure you remove any tight-fighting clothing from your arm or wrist. Wrap the cuff around your upper arm or wrist. You should be able to fit a finger between the cuff and your arm. If you canno t fit a finger between the cuff and your arm, it is too tight and should be removed and rewrapped. Some units require you to manually pump up the arm cuff. Automatic units inflate the cuff when you press a button. Cuff deflation is automatic in both models. After the cuff is inflated, the unit measures your blood pressure and pulse. The readings are shown on a monitor. Hold still and breathe normally while the cuff is inflated. Getting a reading takes less than a minute. Some models store readings in a memory. Some provide a printout of readings. If your machine does not store your readings, keep a written record. Take readings with you to your next visit with your doctor. Document Released: 01/24/2009 Document Revised: 06/28/2014 Document Reviewed: 04/08/2014 [facility] Patient Information 2015 [employer]. This information is not intended to replace advice given to you by your health care provider. Make sure you discuss any questions you have with your health care provider. Fibromyalgia Fibromyalgia is a disorder that is often misunderstood. It is associated with muscular pains and tenderness that comes and goes. It is often associated with fatigue and sleep disturbances. Though it ten ds to be long-lasting, fibromyalgia is not life-threatening. CAUSES The exact cause of fibromyalgia is unknown. People with certain gene types are predisposed to developing fibromyalgia and other conditions. Certain factors can play a role as triggers, such as: Spine disorders. Arthritis. Severe injury (trauma) and other physical stressors. Emotional stressors. SYMPTOMS The main symptom is pain and stiffness in the muscles and joints, which can vary over time. Sleep and fatigue problems. Other related symptoms may include: Bowel and bladder problems. Headaches. Visual problems. Problems with odors and noises. Depression or mood changes. Painful periods (dysmenorrhea). Dryness of the skin or eyes. DIAGNOSIS There are no specific tests for diagnosing fibromyalgia. Patients can be diagnosed accurately from the specific symptoms they have. The diagnosis is made by determining that nothing else is causing the problems. TREATMENT There is no cure. Management includes medicines and an active, healthy lifestyle. The goal is to enhance physical fitness, decrease pain, and improve sleep. HOME CARE INSTRUCTIONS Only take plis-nvv-xponyva or prescription medicines as directed by your caregiver. Sleeping pills, tranquilizers, and pain medicines may make your problems worse. Low-impact aerobic exercise is very important and advised for treatment. At first, it may seem to make pain worse. Gradually increasing your tolerance will overcome this feeling. Learning relaxation techniques and how to control stress will help you. Biofeedback, visual imagery, hypnosis, muscle relaxation, yoga, and meditation are all options. Anti-inflammatory medicines and physical therapy may provide short-term help. Acupuncture or massage treatments may help. Take muscle relaxant medicines as suggested by your caregiver. Avoid stressful situations. Plan a healthy lifestyle. This includes your diet, sleep, rest, exercise, and friends. Find and practice a hobby you enjoy. Join a fibromyalgia support group for interaction, ideas, and sharing advice. This may be helpful. SEEK MEDICAL CARE IF: You are not having good results or improvement from your treatment. FOR MORE INFORMATION National Fibromyalgia Association: www.fmaware.org Arthritis Foundation: www.arthritis.org Document Released: 02/11/2006 Document Revised: 05/05/2012 Document Reviewed: 05/24/2010 [employer] Patient Information 2015 [employer] [facility]. This information is not intended to replace advice given to you by your health care provider. Make sure you discuss any questions you have with your health care provider. No follow up information was provided. Extracted from: Title: Office Visit Note Author: Arnol Feliz MD Date: 11/16/14 Assessment/Plan Anxiety disorder Continue on with the current medications. CAD (coronary artery disease) CVA (cerebrovascular accident) Ordered: Office Visit Level 4 Est 33307 Dyslipidemia Ordered: Office Visit Level 4 Est 49054 Fibromyalgia Refill the Advil 800mg tid prn. Ordered: Office Visit Level 4 Est 41819 Hypertension Ordered: Office Visit Level 4 Est 86999 Hypothyroidism Ordered: Office Visit Level 4 Est 79188 Orders: ibuprofen, See Instructions, TAKE ONE TABLET BY MOUTH TWICE DAILY NEEDS APPT PRIOR TO ADDITIONAL REFILLS, # 60 tabs, 4 Refill(s), Pharmacy: [id number], TAKE ONE TABLET BY MOUTH TWICE DAILY; NEEDS APPT PRIOR TO ADDITIONAL REFILLS
--- OUTSIDE RECORDS SUMMARY | 2017-02-04 02:11 | External Medical Summary | Referral Summary ---
:1950 [address] [facility] Address [address] [place] [address] Care Team Providers Name Role Phone Feliz Arnol Filippo Primary Care Physician Encounter VC Date(s): 12/09/15 - 12/12/[address] [facility] [address] [place] [address] Discharge Disposition: 01-Home or Self Care Attending Physician: Mando Sam MD Admitting Physician: Mando Sam MD Vital Signs Most recent to oldest [Reference Range]: 1 Temperature Oral [35.8-37.3 degC] 36.7 degC (12/11/15 11:00 AM) Temperature Temporal Artery [36.3-37.8 degC] 37.0 degC (12/12/15 4:13 PM) Peripheral Pulse Rate [60-100 bpm] 65 bpm (12/12/15 8:29 AM) Heart Rate Monitored [60-100 bpm] 57 bpm *LOW* (12/12/15 4:13 PM) Respiratory Rate [14-20 br/min] 24 br/min *HI* (12/12/15 11:00 AM) Blood Pressure [90-140/60-90 mmHg] 112/48 mmHg (12/12/15 4:13 PM) Mean Arterial Pressure, Cuff 74 mmHg (12/12/15 4:13 PM) SpO2 98 % (12/12/15 4:13 PM) Remote Telemetry Ongoing (12/11/15 10:35 AM) Problem List Condition Effective Dates Status [...] Active attack)(Confirmed) Varicella without Active complication(Confirmed) 1post [id number] added automatically by system based on initiation of Impaired Skin Integrity Plan of Ffud0Tp side muscle [id number] sided numbness Allergies, Adverse Reactions, Alerts Substance [...] oral tablet 10 mg 1 tabs, Oral, TID, # 90 tabs, 0 Refill(s) Start Date: 12/09/15 Status: Orderedbumetanide 1 mg oral tablet See Instructions, TAKE ONE TABLET BY MOUTH ONCE DAILY, # 90 tabs, eRx: [facility] 2428, TAKE ONE TABLET BY MOUTH ONCE DAILY Start Date: 11/21/15 Status: OrderedbusPIRone 10 mg oral tablet 20 mg 2 tabs, Oral, TID, # 270 tabs, 0 Refill(s) Start Date: 11/16/14 Status: Orderedgabapentin 100 mg oral capsule See Instructions, 3 caps oral in the morning and 4 caps oral in the evening., 0 Refill(s) Start Date: 10/10/15 Status: OrderedhydrOXYzine 50 mg, Oral, BID, 0 Refill(s) Start Date: 08/17/15 Status: Orderedibuprofen 800 mg oral tablet See Instructions, TAKE ONE TABLET BY MOUTH TWICE DAILY, # 60 tabs, eRx: [facility] 2428, TAKEONE TABLET BY MOUTH TWICE DAILY Start Date: 12/06/15 Status: Orderedlevothyroxine 88 mcg (0.088 mg) oral tablet See Instructions, TAKE ONE TABLET BY MOUTH ONCE DAILY, # 90 tabs, eRx: [facility] 2428, TAKE ONE TABLET BY MOUTH ONCE DAILY Start Date: 11/08/15 Status: OrderedLipitor 20 mg oral tablet 20 [...] MOUTH TWICE DAILY, # 60 tabs, eRx: [facility] 2428, TAKEONE TABLET BY MOUTH TWICE DAILY Start Date: 12/02/15 Status: OrderedPlavix 75 mg oral tablet 75 mg 1 tabs, Oral, Daily, 0 Refill(s) Start Date: 08/17/15 Status: OrderedViibryd 20 mg, Oral, Daily, 0 Refill(s) Start Date: 12/31/13 Status: Ordered Results Hematology Most recent to oldest [Reference Range]: 1 WBC [4.8-10.8 10*3/uL] 7.3 10*3/uL (12/12/15 4:34 AM) RBC [4.00-5.20] 3.76 *LOW* (12/12/15 4:34 AM) Hgb [12.0-16.0 gm/dL] 10.6 gm/dL *LOW* (12/12/15 4:34 AM) Hct [37.0-47.0 %] 32.0 % *LOW* (12/12/15 4:34 AM) MCV [82.0-99.0 fL] 85.1 fL (12/12/15 4:34 AM) MCH [27.0-32.0 pg] 28.2 pg (12/12/15 4:34 AM) MCHC [32.0-36.0 gm/dL] 33.1 gm/dL (12/12/15 4:34 AM) RDW [11.5-14.5 %] 14.1 % (12/12/15 4:34 AM) Platelet [150-400 10*3/uL] 180 10*3/uL (12/12/15 4:34 AM) MPV [9.4-12.4 fL] 9.7 fL (12/12/15 4:34 AM) Chemistry Most recent to oldest [Reference Range]: 1 Sodium Lvl [136-144 mEq/L] 141 mEq/L (12/12/15 4:34 AM) Potassium Lvl [3.6-5.1 mEq/L] 3.5 mEq/L *LOW* (12/12/15 4:34 AM) Chloride [99-109 mEq/L] 113 mEq/L *HI* (12/12/15 4:34 AM) CO2 [22-32 mEq/L] 20 mEq/L *LOW* (12/12/15 4:34 AM) AGAP [3-20] 8 (12/12/15 4:34 AM) BUN [4-20 mg/dL] 7 mg/dL (12/12/15 4:34 AM) Glucose Lvl [70-100 mg/dL] 91 mg/dL (12/12/15 4:34 AM) Creatinine Lvl [0.44-1.03 mg/dL] 0.68 mg/dL (12/12/15 4:34 AM) eGFR [>60] >60 1 (12/12/15 4:34 AM) Calcium Lvl [8.6-10.0 mg/dL] 8.6 mg/dL (12/12/15 4:34 AM) Albumin Lvl [3.5-4.8 gm/dL] 3.1 gm/dL *LOW* (12/12/15 4:34 AM) Total Protein [6.1-7.9 gm/dL] 5.4 gm/dL *LOW* (12/12/15 4:34 AM) Globulin [1.9-4.3 gm/dL] 2.3 gm/dL (12/12/15 4:34 AM) ALT [14-54 U/L] 15 U/L (12/12/15 4:34 AM) AST [15-41 U/L] 20 U/L (12/12/15 4:34 AM) Alk Phos [26-104 U/L] 80 U/L (12/12/15 4:34 AM) Bili Total [0.2-1.2 mg/dL] 0.4 mg/dL 2 (12/12/15 4:34 AM) Magnesium Lvl [1.8-2.5 mg/dL] 1.8 mg/dL (12/12/15 4:34 AM) Troponin [<0.06 ng/mL] <0.05 ng/mL (12/10/15 11:19 AM) Blood Glucose, Capillary [70-100 mg/dL] 90 mg/dL (12/11/15 10:36 AM) Chol [0-200 mg/dL] 118 mg/dL (12/12/15 4:34 AM) Trig [0-150 mg/dL] 90 mg/dL (12/12/15 4:34 AM) HDL [>40 mg/dL] 30 mg/dL *ABN* (12/12/15 4:34 AM) LDL [0-100 mg/dL] 70 mg/dL (12/12/15 4:34 AM) VLDL Cholesterol [0-30 mg/dL] 18 mg/dL (12/12/15 4:34 AM) Cardiac Risk [0.0-5.0] 3.9 (12/12/15 4:34 AM) 1Result Comment: Multiply eGFR results by 1.21 for race.2Result Comment: Naproxen, specifically the metabolite O-desmethylnaproxen, may cause spurious elevation in Total Bilirubin levels. Immunizations Vaccine Date Refusal Reason tetanus/diphth/pertuss (Tdap) adult/adol 03/23/11 influenza virus vaccine, inactivated1 11/11/15 influenza virus vaccine, inactivated 11/10/14 influenza virus vaccine, inactivated 11/13/13 influenza virus vaccine, inactivated 11/13/13 influenza virus vaccine, live 11/10/12 influenza virus vaccine, live 10/06/10 pneumococcal 23-polyvalent vaccine 03/23/11 1Location History: [facility] Procedures Procedure Date Related Diagnosis Body Site Angioplasty or Stent Percutaneous Transluminal 12/11/15 Coronary (Right, Groin)1 Catheterization Left Heart with Coronary 12/11/15 Angiography (Right, Groin)2 Catheterization Left Heart with Coronary 12/09/15 Angiography3 Angiogram Peripheral4 10/04/15 Hysterectomy 1985 Placement of stent in cardiac conduit S/P adenoidectomy S/P tonsillectomy 1auto-populated from documented surgical [id number] from documented surgical [id number] from documented surgical [id number] from documented surgical case Social History Social History Type Response Smoking Status Current every day smoker; Type: Cigarettes; Tobacco use per day : Less than Pack Assessment and Plan No data available for this section
--- OUTSIDE RECORDS SUMMARY | 2017-02-04 02:11 | External Medical Summary | Referral Summary ---
:1950 Author Organization [facility] Address [address] [place] [address] [place] [id number] Care Team Providers Name Role Phone Arnol Feliz Primary Care Physician Encounter VC Date(s): 10/10/15 - 10/10/15 [facility] [address] [place] [phone] [place] Discharge Disposition: 01-Home or Self Care Attending Physician: Arnol Feliz MD Admitting Physician: Arnol Feliz MD Vital Signs Most recent to oldest [Reference Range]: 1 Blood Pressure [90-140/60-90 mmHg] 136/78 mmHg (10/10/15 3:07 PM) Problem List Condition Effective Dates Status [...] Active attack)(Confirmed) Varicella without Active complication(Confirmed) 1post [id number] side muscle [id number] sided numbness Allergies, Adverse Reactions, Alerts Substance [...] MOUTH TWICE DAILY, # 60 tabs, eRx: [id number], TAKEONE TABLET BY MOUTH [...]
--- OUTSIDE RECORDS SUMMARY | 2017-02-04 02:11 | External Medical Summary ---
:1950 Author Organization eClinical[employer] Care Team Providers Name Role Phone Flaco, Gerardojonathan Provider Role Unavailable Allergies No Known Allergies Problems No Known Problems Medications No Known Medications Results No Known Results Summary Purpose eClinicalWorks Submission
[2017-02-04] MEDS ORDERED: ONDANSETRON 4 MG/2 ML INJECTION IVP ONE (02:27)
[2017-02-04] MEDS ORDERED: KETOROLAC 30 MG/ML INJECTION IVP ONE (02:27)
[2017-02-04] MEDS ORDERED: NS 1,000 ML IV ONE (02:27)
[2017-02-04] MEDS ORDERED: HYDROMORPHONE 2 MG/ML INJECTION IVP ONE ×2 (02:27→04:15)
--- NOTE | 2017-02-04 02:32 | Emergency Department Report ---
Abdominal Pain HPI - General Chief Complaint: Abdominal Pain Stated Complaint: Lest side abd pain Time Seen by Provider: 02/04/17 02:04 Source: patient Mode of arrival: ambulatory Limitations: no limitations - History of Present Illness HPI narrative: Just before midnight, while laying down to sleep, the patient had sudden onset left lower quadrant abdominal pain with nausea from the intense pain. She is unable to describe the pain, stating that he just "hurts." She's never had anything like this before, has normal bowel movements, no constipation or diarrhea, no dysuria or hematuria, and denies any previous history similar to this. Patient does admit diverticulosis/diverticulitis in the past, many years ago. - Related Data Home Medications Medication Instructions Recorded Confirmed Nitroglycerin 0.4 mg SL PRN #0 10/01/12 02/04/17 Aspirin [Aspir 81] 81 mg PO DAILY #0 tab 06/03/13 02/04/17 Levothyroxine Sodium 88 mcg PO ACB #0 06/03/13 02/04/17 Docosahexanoic Acid [Dha] 1 tab PO DAILY #0 10/29/13 02/04/17 Atorvastatin Calcium 20 mg PO HS #0 tab 08/08/15 02/04/17 Buspirone HCl 20 mg PO TID #0 08/08/15 02/04/17 Gabapentin 400 mg PO BID #0 08/08/15 02/04/17 Duloxetine [Cymbalta] 30 mg PO DAILY 10/16/16 02/04/17 Oxybutynin Chloride 5 mg PO BID 10/16/16 02/04/17 Previous Rx's Medication Instructions Recorded Clopidogrel Bisulfate [Plavix] 75 mg PO DAILY 30 Days #30 tab 08/12/15 Metoprolol Tartrate 12.5 mg PO BIDWM 30 Days #0 08/12/15 Allergies Allergy/AdvReac Type Severity Reaction Status Date / Time tetracycline Allergy Unknown Verified 02/04/17 02:49 Review of Systems All systems: reviewed and negative except as stated PFSH Patient Stated Medical History Peripheral Neuropathy Yes Transient Ischemic Attacks ( Yes: TIA TIA) Angina Yes Congestive Heart Failure Yes Coronary Artery Disease Yes Myocardial Infarction Yes Post Menopausal Yes Diverticulitis - Social History Smoking status: Former smoker Substance use type: does not use Alcohol intake frequency: does not drink Physical Exam - Limitations Limitations: no limitations - General General appearance: alert - Normal Exams: Head:: Normocephalic without trauma Eyes:: Pupils are PERRLA w/ EOMI, No scleral icterus, irritation, or foreign bodies noted ENMT:: No facial trauma, nasal exudates, pharyngeal erythema, or exudates are noted Neck:: Full range of motion, without adenopathy, JVD, bruits or thyromegaly Chest/Respirations:: Clear all molina, with good airflow, and symmetry bilaterally Cardiovascular:: Regular rate and rhythm, without murmur or gallop, Pulses 2+ all extremities, capillary refill, <2 seconds all extremities Lymphatic:: No lymphadenopathy, or lymphedema noted Musculoskeletal:: No tenderness, or deformity noted, good range of motion, all extremities Integumentary:: No rashes, hives, or bruising noted, hair and nails, without abnormality Neurological:: Patient is alert, and oriented, cranial nerves, motor/sensory/ cerebellar, exams w/o gross deficits, to observation Psychiatric:: Patient exhibits, appropriate attention, emotion and affect - Abdominal Exam Abdominal exam: Present: soft, tenderness (significant left lower quadrant tenderness, no guarding no rebound), hyperactive bowel sounds. Absent: distention, guarding, rebound, rigidity, organomegaly, trauma, incision, psoas sign, obturator sign, heel tap sign, Roberts's sign, Rovsing's sign, tenderness at McBurney's Point, mass, bruit, pulsatile mass, hernia Course Vital Signs Respiratory Rate 51 H 02/04/17 02:06 Blood Pressure 170/74 H 02/04/17 02:06 Pulse Oximetry 96 02/04/17 02:06 Respiratory Rate 51 H 02/04/17 02:06 Blood Pressure 170/74 H 02/04/17 02:06 Pulse Oximetry 96 02/04/17 02:06 Abdominal Pain - MDM Narrative Medical decision making narrative: Patient given 1 L normal saline IV fluid bolus, Toradol 30 mg, Zofran 4 mg, Dilaudid 0.5 mg IV - usually patient had relief, but the pain has come back and is even more intense than before. CBC - n CMP/L - n UA - n CT abdomen - 5 x 6 mm left ureteral stone, high at the UPJ. Patient sent with instructions for ibuprofen 600 mg 4 times daily, Reglan 10 mg every 6-8 hours, max once daily, and [place] when necessary pain Patient discussed with Dr. Lazaro Coffman, he will admit the patient observation to surgical floor with urologic consultation to Dr. Burt - Lab Data Result diagrams: 02/04/17 02:36 02/04/17 02:36 Disposition Clinical Impression: Hydronephrosis with renal and ureteral calculous obstruction Disposition: [address] [facility] [place]: Improved Prescriptions: No Action Levothyroxine Sodium 88 mcg PO ACB #0 Docosahexanoic Acid [Dha] 1 tab PO DAILY #0 Atorvastatin Calcium 20 mg PO HS #0 tab Duloxetine [Cymbalta] 30 mg PO DAILY Nitroglycerin 0.4 mg SL PRN #0 Aspirin [Aspir 81] 81 mg PO DAILY #0 tab Gabapentin 400 mg PO BID #0 Buspirone HCl 20 mg PO TID #0 Metoprolol Tartrate 12.5 mg PO BIDWM 30 Days #0 Clopidogrel Bisulfate [Plavix] 75 mg PO DAILY 30 Days #30 tab Oxybutynin Chloride 5 mg PO BID Referrals: Geoffrey Scott MD [Family Provider] - - Seen By: physician
[2017-02-04] MEDS ORDERED: IOHEXOL 300mg/ml 100ml INJECTION ONE (02:55)
[2017-02-04] MEDS ORDERED: SALINE FLUSH 10ml SYRINGE ONE ×3 (02:56→17:36)
[2017-02-04] MEDS ORDERED: NS 100 ML ONE (02:56)
[2017-02-04] MEDS ORDERED: METOCLOPRAMIDE 10mg/2ml INJECTION IVP ONE (04:15)
[2017-02-04] MEDS ORDERED: BISACODYL 10 MG SUPPOSITORY RECTALLY PRN (05:15)
[2017-02-04] MEDS ORDERED: HYDROMORPHONE 2 MG/ML INJECTION IVP PRN (05:15)
[2017-02-04] MEDS ORDERED: NITROGLYCERIN 0.4 MG SUBLINGUAL TABLET SL SCH (05:15)
[2017-02-04] MEDS ORDERED: METOCLOPRAMIDE 10mg/2ml INJECTION IVP PRN (05:15)
[2017-02-04] MEDS ORDERED: ACETAMINOPHEN 325 MG TABLET PO PRN (05:15)
[2017-02-04] MEDS: NS 1,000 ML IV SCH ×2 (05:40→15:43)
[2017-02-04] MEDS: PANTOPRAZOLE 40 MG INJECTION IVP SCH (06:09)
[2017-02-04] MEDS: LEVOTHYROXINE 88 MCG TABLET PO SCH (06:09)
[2017-02-04 06:44] VITALS: BMI 26.4
--- NOTE | 2017-02-04 06:52 | History & Physical Report ---
History of Present Illness Date: 02/04/17 Chief complaint: left flank/abd/back pain w/ n/v HPI: 66 y/o w/ h/o TIA, peripheral neuropathy, polysub abuse in the past (marijuana and opiates), CAD, Diverticulitis and Hypothyroidism presents to ED w/ concern of sudden onset of left flank and left lower back pain w/ n/v. Patient denies f/c/s, diarrhea, melena, hematochezia, gross hematuria and dysuria. In ER had CT showing obstructing high ureteral 5-6 mm stone on the left w/ left hydronephrosis, perinephric stranding and renal pelvis edema Patient received Reglan, Zofran, Toradol and Dilaudid and overall is starting to feel a little better. [facility] notified and Dr. Jones will be available to consult after 0700 today. Patient admitted to the Hospitalist service for further evaluation and management. Review of Systems All systems PM: 10-point ROS was reviewed, no additional remarkable complaints except PFSH Patient Stated Medical History Peripheral Neuropathy Yes Transient Ischemic Attacks ( Yes: TIA TIA) Angina Yes Congestive Heart Failure Yes Coronary Artery Disease Yes Myocardial Infarction Yes Gastroesophageal Reflux Yes Disease Blood Transfusions Yes Depression Yes Post Menopausal Yes Clinic Medical History Hydronephrosis with renal and ureteral calculous obstruction (Acute Medical) - Social History Smoking status: Former smoker Medications Home Medications Medication Instructions Recorded Confirmed Type Nitroglycerin 0.4 mg SL PRN #0 10/01/12 02/04/17 History Aspirin [Aspir 81] 81 mg PO DAILY #0 tab 06/03/13 02/04/17 History Levothyroxine Sodium 88 mcg PO ACB #0 06/03/13 02/04/17 History Docosahexanoic Acid [Dha] 1 tab PO DAILY #0 10/29/13 02/04/17 History Atorvastatin Calcium 20 mg PO HS #0 tab 08/08/15 02/04/17 History Buspirone HCl 20 mg PO TID #0 08/08/15 02/04/17 History Gabapentin 400 mg PO BID #0 08/08/15 02/04/17 History Duloxetine [Cymbalta] 30 mg PO DAILY 10/16/16 02/04/17 History Oxybutynin Chloride 5 mg PO BID 10/16/16 02/04/17 History Allergies Allergy/AdvReac Type Severity Reaction Status Date / Time tetracycline Allergy Unknown Verified 02/04/17 05:43 Exam Vital Signs: Temperature 97.5 F 02/04/17 04:57 Pulse Rate 50 L 02/04/17 04:57 Respiratory Rate 14 02/04/17 04:57 Blood Pressure 127/79 02/04/17 04:57 Pulse Oximetry 97 02/04/17 04:57 Height/Weight/BMI: Height 1.6 m Weight 67.8 kg Body Mass Index 26.4 - Constitutional Present: no acute distress, well nourished, well developed - Routine HEENT Exam Head: Present: normocephalic, atraumatic Eye: Present: EOMI, PERRL. Absent: conjunctival icterus, scleral injection ENT: Present: mucous membranes dry - Routine Neck Exam Present: supple, full ROM. Absent: JVD - Routine Respiratory Exam Present: CTA bilaterally - Routine Cardiovascular Exam Present: RRR - Routine Abdominal Exam Present: soft, normoactive bowel sounds, non distended Comments: +ttp in left upper quadrant, flank and left costo-vertebral angle - Routine Extremities Exam Absent: cyanosis, clubbing, edema - Routine Skin Exam Present: intact - Routine Neurological Exam Present: alert, oriented X3 - Routine Psychiatric Exam Present: normal affect, normal thought process Results - Labs CBC & Chem 7: 02/04/17 02:36 02/04/17 02:36 Assessment and Plan Assessment and Plan: Assessment: Acute Nephrolithiasis left UPV w/ left hydronephrosis and stranding Acute pain, n/v/ r/t above Hypothyroidism GERD H/o CAD H/o TIA H/o Diverticulitis Peripheral Neuropathy Plan: Consult Urology IVFs Flomax Pain meds Prn IV antiemetics Protonix Home meds except holding ASA and Plavix pending consult for Urology and whether procedure to be done today Supportive care I discussed the plan of care w/ the patient and she verbalized understanding and agreement DVT Prophylaxis: SCD's GI Prophylaxis: Protonix Resuscitation Status: Full Code - Physician Narriative Narriative: 02/04/17 09:50 Jake Saucedo MD. Pt seen and evaluated this am. She presented last night with severe flank pain. Was evaluated and noted to have 5x6mm kidney stone in ureter, causing mild hydronephrosis. Perinephric stranding also noted. WBC elevated at11.4. No fever at time of presentation. She required dilaudid for pain control. Unable to manage with outpatient meds. No previous instrumentation for kidney stones. PMH PMH, ROS, MEDS, ALL all reviewed and agree with above. Labs reviewed, elevated wbc 11.4. CT Abd pelvis showed 5-6mm stone with hydronephrosis on left. Some perinephric stranding also seen. Exam: Lungs: CTA, no wheeze, no crackle CV: RRR, no mur ABD: flank tenderness to percussion on left. Normal BS, no mass. EXT: no c/c/e A/P 1) Nephrolithiasis with hydronephrosis. Dr Franklin consulted. Taking pt to OR this afternoon, pending his eval this am. Hold asa and plavix. 2)Elevated wbc with perinephric stranding on CT: Blood cx x 2, Rocephin [address] Franklin to eval and may change antibiotic if desired. 3) Pain management IV diluadid as needed, zofran as needed. RPT labs in am Jake Saucedo MD Hospital Course Summary Disclaimer: The visit summary below is not to be considered part of the above Progress Note.
--- NOTE | 2017-02-04 08:41 | CT Scan Report ---
EXAM: CT abdomen pelvis w con HISTORY: severe LLQ pain, vomiting COMPARISON: No prior studies are available for comparison TECHNIQUE: CT images were obtained of the abdomen and pelvis utilizing 90 cc of Omnipaque 300. The current CT scan was performed using radiation dose-reduction techniques. FINDINGS: LUNG BASES: Dependent atelectasis is seen at both lung bases. LIVER: Normal size showing no discrete/enhancing lesions. SPLEEN: Normal size showing no discrete/enhancing lesions. GALLBLADDER: No CT evidence of stones or wall thickening. PANCREAS: No focal enlargement, ductal dilatation, enhancing lesions or peripancreatic inflammatory change. ADRENAL GLANDS: Not enlarged. KIDNEYS: The left kidney is slightly larger than the right and there is moderate left hydronephrosis secondary to a 5 x 6 mm calculus seen at the left ureteropelvic junction. There are a few residual nonobstructing calculi on the left kidney range between 3 and 6 mm. There is mild left perinephric stranding. There is no evidence of right nephrocalcinosis or right obstructive uropathy. VASCULAR: The abdominal aorta and IVC are normal caliber. Mild to moderate scattered plaque dimension is seen in the abdominal aorta and iliac arteries. LYMPH NODES: No abdominal pelvic adenopathy. STOMACH BOWEL LOOPS: Stomach is partially distended with ingested material but appears unremarkable. The bowel loops are normal caliber, there is no evidence of mechanical bowel obstruction. There are a few scattered diverticula along the course of the sigmoid colon without evidence of diverticulitis. There is no evidence of acute appendicitis. URINARY BLADDER: No filling defects or wall thickening. UTERUS/OVARIES: Surgically absent. OSSEOUS STRUCTURES: Multilevel advanced degenerative disc changes in the mildly scoliotic lumbar spine. No acute fractures or focal destructive lesions are identified. PERITONEAL CAVITY: No free air or free fluid ABDOMINAL WALL: Tiny fat-containing periumbilical hernia. IMPRESSION: 1. 5 x 6 mm calculus at the left ureteropelvic junction with associated grade 2 left obstructive uropathy. There is mild left perinephric stranding which may be due to calyceal rupture or concurrent left pyelonephritis. 2. Residual nonobstructing left nephrocalcinosis. 3. No evidence of mechanical bowel obstruction or acute appendicitis. 4. Diverticulosis coli without evidence of diverticulitis. 5. Uterine anatomy surgically absent. Preliminary report was provided by [facility] imaging services immediately following the initial review of this examination 02/04/2017 at 3:43 AM .
[2017-02-04] MEDS ORDERED: CEFTRIAXONE 1,000 MG in D5W 25 ML IV SCH (09:00)
[2017-02-04] MEDS: BUSPIRONE 10 MG TABLET PO SCH ×3 (10:29→21:05)
[2017-02-04] MEDS: GABAPENTIN 400 MG CAPSULE PO SCH ×2 (10:30→21:05)
[2017-02-04] MEDS: DULOXETINE 30 MG CAPSULE PO SCH (10:30)
[2017-02-04] MEDS: CEFTRIAXONE 1 G in NS 100 ML IV SCH (10:31)
[2017-02-04] MEDS: TAMSULOSIN 0.4 MG CAPSULE PO SCH ×2 (11:09→21:05)
[2017-02-04] MEDS: KETOROLAC 30 MG/ML INJECTION IVP PRN (11:23)
[2017-02-04] MEDS: SALINE FLUSH 10ml SYRINGE IVF PRN (11:23)
[2017-02-04] MEDS: LR 1,000 ML IV SCH (16:00)
[2017-02-04] MEDS ORDERED: IOHEXOL 300mg/ml 50ml INJECTION ONE (16:24)
--- NOTE | 2017-02-04 16:32 | Anesthesia Preoperative Report ---
Anesthesia Preoperative Record - Date and Time Date: 02/04/17 Preoperative Diagnosis: Kidney stone,intractable n/v,flank/back pain Proposed Procedure: left ureteroscopy, holmium laser litho, possible left stent NPO Since Date: 02/03/17 NPO Since Time: 23:00 Allergies/Adverse Reactions: Allergies Allergy/AdvReac Type Severity Reaction Status Date / Time tetracycline Allergy Unknown Verified 02/04/17 05:43 - Vital Signs Vital Signs: Temperature 98.8 F 02/04/17 15:59 Pulse Rate 58 L 02/04/17 15:59 Respiratory Rate 14 02/04/17 15:59 Blood Pressure 132/61 02/04/17 15:59 Pulse Oximetry 96 02/04/17 15:59 Height and Weight: Height 5 ft 3 in Weight 66.8 kg Body Mass Index 26.4 - Medications Inpatient Medications: Current Medications Acetaminophen (Tylenol) 650 mg PO Q5H PRN PRN Reason: Discomfort Atorvastatin Calcium (Lipitor) 20 mg PO HS ALIN Bisacodyl (Dulcolax) 10 mg RECTALLY DAILY PRN PRN Reason: Constipation Buspirone HCl (Buspar) 20 mg PO TID [facility] Last Admin: 02/04/17 15:43 Dose: Not Given Duloxetine HCl (Cymbalta) 30 mg PO DAILY [facility] Last Admin: 02/04/17 10:30 Dose: 30 mg Gabapentin (Neurontin) 400 mg PO BID [facility] Last Admin: 02/04/17 10:30 Dose: 400 mg Hydromorphone HCl (Dilaudid) 0.5 mg IVP Q2H PRN PRN Reason: Pain Last Admin: 02/04/17 06:39 Dose: 0.5 mg Sodium Chloride (Normal Saline) 1,000 mls @ 100 mls/hr IV .Q10H [facility] Last Admin: 02/04/17 15:43 Dose: Not Given Ceftriaxone Sodium 1 g/ Sodium (Chloride) 100 mls @ 200 mls/hr IV Q24H [facility] Last Infusion: 02/04/17 16:21 Dose: Infused Ketorolac Tromethamine (Toradol Inj) 30 mg IVP Q6H PRN PRN Reason: Pain Stop: 02/05/17 09:00 Last Admin: 02/04/17 11:23 Dose: 30 mg Levothyroxine Sodium (Synthroid) 88 mcg PO ACB [facility] Last Admin: 02/04/17 06:09 Dose: 88 mcg Metoclopramide HCl (Reglan) 5 mg IVP Q6H PRN Metoprolol Tartrate (Lopressor) 12.5 mg PO BIDWM [facility] Last Admin: 02/04/17 10:47 Dose: Not Given Nitroglycerin (Nitrostat) 0.4 mg SL PRN ALIN Pantoprazole Sodium (Protonix Iv) 40 mg IVP Q24H [facility] Last Admin: 02/04/17 06:09 Dose: 40 mg Sodium Chloride (Iv Flush) 10 - 80 ml IVF PRN PRN PRN Reason: Flushing Last Admin: 02/04/17 11:23 Dose: 10 ml Tamsulosin HCl (Flomax) 0.4 mg PO BID [facility] Last Admin: 02/04/17 11:09 Dose: 0.4 mg Home Medications: Home Medications Medication Instructions Recorded Confirmed Type Nitroglycerin 0.4 mg SL PRN #0 10/01/12 02/04/17 History Aspirin [Aspir 81] 81 mg PO DAILY #0 tab 06/03/13 02/04/17 History Levothyroxine Sodium 88 mcg PO ACB #0 06/03/13 02/04/17 History Docosahexanoic Acid [Dha] 1 tab PO DAILY #0 10/29/13 02/04/17 History Atorvastatin Calcium 20 mg PO HS #0 tab 08/08/15 02/04/17 History Buspirone HCl 20 mg PO TID #0 08/08/15 02/04/17 History Gabapentin 400 mg PO BID #0 08/08/15 02/04/17 History Duloxetine [Cymbalta] 30 mg PO DAILY 10/16/16 02/04/17 History Oxybutynin Chloride 5 mg PO BID 10/16/16 02/04/17 History Is Patient on Beta Pamela?: Yes - Medical History Respiratory: DENIES: Sleep Apnea (BUT SUSPECTED BASED ON BREATHING PATTERN WHILE ASLEEP) Cardiovascular: Reports: Angina (stable angina- last took NTG 2016 and quickly relieved), Congestive Heart Failure, Coronary Artery Disease ( 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), Myocardial Infarction (stent x1 " early 2016") Gastrointestional: Reports: Nausea or Vomiting Present, Gastroesophageal Reflux Disease Neuro/Musculoskeletal: Reports: Back Problems (spine is crooked), Depression Renal/Endocrine: Reports: Thyroid Disease Other History: Reports: Blood Transfusions - Surgical History HEENT Surgeries: Reports: Tonsillectomy Cardiac Surgeries/Treatments: Reports: Angiogram, Cardiac Catheterization GI Surgery/Treatments: Reports: Appendectomy Reproductive Surgery/Treatment: Reports: Hysterectomy Anesthesia Reactions: None Hx Family Anesthesia Reaction: No History of Motion Sickness: No - Social History Smoking Status: Former smoker (quit 2017, smoked 40+ yrs. 1ppd. denies COPD) Hx Chewing Tobacco Use: No Substance Use Type: does not use Alcohol Intake Frequency: does not drink - Pertinent Findings EKG: Sinus Bradycardia - Physical Exam Respiratory Exam: Present: lungs clear, bilateral breath sounds equal Cardiovascular Exam: Present: regular rate and rhythm - Airway Assessment Mallampati Score: II TMD: 3 Fingerbreadths Neck Extension: good Overall Assessment: no airway concerns - ASA ASA Score: 3 - Plan Anesthesia: General TIVA - Discussion Discussion: Discussed risks/options/alternatives of anesthesia and questions answered. Patient consents. Nursing pain assessment noted. Attestation Statement: Prior to the delivery of any anesthetic medication, I examined the patient, developed the plan, obtained the patient's consent and discussed the risk and benefits of the procedure with the patient/guardian. - Additional Information Seen by Anesthesia: Yes
[2017-02-04] MEDS ORDERED: FentaNYL 100 MCG/2 ML INJECTION ONE (16:41)
[2017-02-04] MEDS ORDERED: PROPOFOL 500 MG/50 ML VIAL IV ONE (16:41)
[2017-02-04] MEDS ORDERED: MIDAZOLAM 2mg/2ml INJECTION ONE (16:41)
[2017-02-04] MEDS ORDERED: LIDOCAINE VISCOUS 2% ORAL LIQUID 15ml ONE (17:12)
[2017-02-04] MEDS ORDERED: PROPOFOL 20 ML ONE ×2 (17:20→17:57)
[2017-02-04] MEDS ORDERED: EPHEDRINE 50mg/ml INJECTION ONE (17:29)
[2017-02-04] MEDS ORDERED: PHENYLEPHRINE INJ 10 MG/ML VIAL IV ONE (17:35)
--- NOTE | 2017-02-04 18:22 | Anesthesia Postoperative Note ---
- Date and Time Date: 02/04/17 Time: 18:22 - Status Patient Participated in Evaluation: Patient Participated in Person Vital Signs: Temperature 98.8 F 02/04/17 15:59 Pulse Rate 58 L 02/04/17 15:59 Respiratory Rate 14 02/04/17 15:59 Blood Pressure 132/61 02/04/17 15:59 Pulse Oximetry 96 02/04/17 15:59 Respiratory Function: Airway Patent, Regular Respirations Cardiovascular Function: Regular Pulse EKG: Sinus Rhythm Mental Status: Alert and Oriented Pain Intensity: 0 Hydration: IV Infusing Complications During Recover: None Apparent - Follow-Up Instructions Instructions: Per Surgeon
[2017-02-04] MEDS ORDERED: ATORVASTATIN 20 MG TABLET PO SCH (21:00)
[2017-02-05] MEDS: KETOROLAC 30 MG/ML INJECTION IVP PRN (04:32)
[2017-02-05] MEDS: SALINE FLUSH 10ml SYRINGE IVF PRN (04:33)
[2017-02-05] MEDS: LEVOTHYROXINE 88 MCG TABLET PO SCH (05:53)
[2017-02-05] MEDS: PANTOPRAZOLE 40 MG INJECTION IVP SCH (05:53)
[2017-02-05] MEDS: LR 1,000 ML IV SCH (08:10)
[2017-02-05] MEDS: GABAPENTIN 400 MG CAPSULE PO SCH (08:15)
[2017-02-05] MEDS: TAMSULOSIN 0.4 MG CAPSULE PO SCH (08:15)
[2017-02-05] MEDS: DULOXETINE 30 MG CAPSULE PO SCH (08:15)
[2017-02-05] MEDS: BUSPIRONE 10 MG TABLET PO SCH ×2 (08:16→15:52)
[2017-02-05] MEDS: CEFTRIAXONE 1 G in NS 100 ML IV SCH (08:16)
[2017-02-05] MEDS ORDERED: NS FLUSH BAG 500ml IV PRN (08:17)
--- NOTE | 2017-02-05 08:51 | Remote Fluorsocopy Report ---
Indication: URETERAL STONE Procedure: RF retrograde pyelogram LT: Encounter: Initial Comparison: None Technique: Eight intraoperative fluoroscopic spot images were submitted for review. 41.5 seconds of fluoroscopy time was provided. Findings/ Impression: The submitted intraoperative fluoroscopic spot images demonstrate a left nephroureteral stent in place. Contrast instillation demonstrates patency of the stent. There may be a few focal hyperdensities within the left kidney related to stones. Please refer to the operative note for further details. .
[2017-02-05] MEDS ORDERED: Bisacodyl EC TAB 5 MG TABLET PO ONE (10:16)
--- NOTE | 2017-02-05 10:29 | Operative Note ---
DATE OF PROCEDURE 02/04/2017 PREOPERATIVE DIAGNOSES 1. Left ureteral stone. 2. Left kidney stone. POSTOPERATIVE DIAGNOSES 1. Left ureteral stone. 2. Left kidney stone. PROCEDURE PERFORMED 1. Cystoscopy, left retrograde pyelogram. 2. Left ureteroscopy with laser lithotripsy. 3. Stone basketing. 4. Left stent placement. PRIMARY SURGEON Enio Jones MD COMPLICATIONS None. DRAINS 6 x 24 left double-J stent. SPECIMEN REMOVED Stone. RADIOLOGIC FINDINGS Left retrograde pyelogram showed a filling defect in the left proximal ureter corresponding to stone with moderate left hydronephrosis. INDICATION FOR THE PROCEDURE This is a 66-year-old female who was admitted to [facility] last night for severe left flank pain secondary to a 6 mm left UPJ stone. The patient also had a 5-6 mm stone in the left lower pole of her kidney. I saw the patient today and after discussion of her options she elected to proceed to the OR for left ureteroscopy. DESCRIPTION OF PROCEDURE The patient was identified in the preoperative holding area. The procedure was explained to her. She agreed to proceed. She was taken back to the operating room where she was placed supine on the operating table. General anesthesia was induced. She was then placed in dorsal lithotomy position. Her genitalia were prepped and draped in the usual fashion. At this time a formal time-out was done. All the persons in the room were in agreement. I began the procedure by introducing a cystoscope inside the bladder. A 5- [place] ureteral catheter was used to intubate the left UO. I then shot a left retrograde pyelogram which showed a filling defect in the left proximal ureter corresponding to the stone with left moderate hydronephrosis. A Sensor wire was then placed past the stone in the left kidney. The cystoscope was then removed. A ureteral access sheath was placed over the wire under fluoro guidance and advanced to the level of the proximal ureter. I then introduced my flexible ureteroscope with the access sheath. I identified the stone in the proximal ureter. A holmium laser fiber was used to fragment the stone in several fragments. I then advanced my ureteroscope to the kidney. In the lower pole of the kidney I identified another stone. This was also lasered with the holmium laser fiber. I then used a Zero Tip basket to remove all the significant fragments from the kidney and the ureter. At the end there were only dust-like particles in the kidney. I then inspected every taylor in the kidney and there were no residual stones left. The flexible ureteroscope was then removed. The stent wire was replaced into the left kidney. The access sheath was removed. Under fluoro guidance, a 6 x 24 double-J stent was placed over the wire and advanced to the level of the left kidney. The wire was then removed and I observed a nice curl of the stent in the kidney and the bladder. The string from the stent was secured to the patient's inner thigh. DISPOSITION The patient will be transferred back her room in the hospital. She can be discharged from urology standpoint. We will remove her stent in one week. FARRUKH
[2017-02-05 11:31] VITALS: RESP 17
[2017-02-05 15:34] VITALS: BP 106/64; TEMP 99.2; O2SAT 96
[2017-02-05 16:18] VITALS: PULSE 78
--- NOTE | 2017-02-05 16:58 | Discharge Summary ---
Discharge Information Date of admission: 02/04/17 04:39 Anticipated date of discharge: 02/05/17 Attending Physician: Ruthann Mujica MD Primary care physician: Geoffrey Scott MD - Discharge Diagnosis (1) Hydronephrosis with renal and ureteral calculous obstruction Status: Acute Kidney stone. Ureteral stone. Hypokalemia - Procedures Procedures: Ureteral stent placement. - Laboratory Labs: 02/05/17 04:17 02/05/17 15:08 - Microbiology Microbiology 02/04/17 09:10 Peripheral/Iv Start Blood Culture - Preliminary No Growth After 1 Day 02/04/17 09:20 Peripheral/Iv Start Blood Culture - Preliminary No Growth After 1 Day - Radiology Radiology: 02/04/17 CT abd showing 5x6mm calculi at left UPJ. History of Present Illness HPI: 66 y/o w/ h/o TIA, peripheral neuropathy, polysub abuse in the past (marijuana and opiates), CAD, Diverticulitis and Hypothyroidism presents to ED w/ concern of sudden onset of left flank and left lower back pain w/ n/v. Patient denies f/c/s, diarrhea, melena, hematochezia, gross hematuria and dysuria. In ER had CT showing obstructing high ureteral 5-6 mm stone on the left w/ left hydronephrosis, perinephric stranding and renal pelvis edema Patient received Reglan, Zofran, Toradol and Dilaudid and overall is starting to feel a little better. [facility] notified and Dr. Jones will be available to consult after 0700 today. Patient admitted to the Hospitalist service for further evaluation and management. Objective Vital signs: Temperature 99.2 F 02/05/17 15:34 Pulse Rate 78 02/05/17 16:00 Respiratory Rate 17 02/05/17 15:34 Blood Pressure 106/64 02/05/17 15:34 Pulse Oximetry 96 02/05/17 15:34 Height/Weight/BMI: Height 1.6 m Weight 69.2 kg Body Mass Index 26.4 - Constitutional Present: well nourished, well developed - Routine HEENT Exam Eye: Present: EOMI ENT: Present: mucous membranes moist, dentition normal - Routine Respiratory Exam Present: CTA bilaterally. Absent: wheezes - Routine Cardiovascular Exam Present: RRR. Absent: murmur - Routine Abdominal Exam Present: soft, normoactive bowel sounds, non distended. Absent: tenderness - Routine Extremities Exam Present: normal capillary refill - Routine Skin Exam Present: dry, warm - Routine Neurological Exam Present: alert, oriented X3, CN II-XII intact - Routine Lymphatic Exam Lymphatic: Absent: adenopathy - Routine Psychiatric Exam Present: normal affect Hospital Course This is a general summary of the patient's hospital course. For more details refer to the complete medical record. Hospital course: Patient was admitted to the hospital with IV fluid and Rocephin. Hypokalemia was treated at time of discharge with oral supplement. Potassium increased to 3.6 prior to discharge. Laser lithotripsy performed with ureteral stone removed via basket. Ureteral stent was placed by urology. Patient will follow-up in one week for stent removal. Appointment is made. Patient is discharged. Time spent with patient: greater than 35 minutes Discharge Plan - Discharge Disposition Discharge Date: 02/05/17 Disposition: 01 Discharged Home, Self-Care *Condition: Improved Reason For Visit (Visit label in EMR): Kidney stone,intractable n/v,flank/back pain - Discharge Medications *Discharge Medications: New Tamsulosin [Flomax] 0.4 mg PO BID #14 cap Continue Levothyroxine Sodium 88 mcg PO ACB #0 Docosahexanoic Acid [Dha] 1 tab PO DAILY #0 Atorvastatin Calcium 20 mg PO HS #0 tab Duloxetine [Cymbalta] 30 mg PO DAILY Nitroglycerin 0.4 mg SL PRN #0 Aspirin [Aspir 81] 81 mg PO DAILY #0 tab Gabapentin 400 mg PO BID #0 Buspirone HCl 20 mg PO TID #0 Metoprolol Tartrate 12.5 mg PO BIDWM 30 Days #0 Clopidogrel Bisulfate [Plavix] 75 mg PO DAILY 30 Days #30 tab Oxybutynin Chloride 5 mg PO BID - Discharge Packet/Instructions *Diet: regular *Activity: as tolerated *Pain Management/Treatment: Ibuprofen 600mg three times daily as needed for pain *Notify Physician if: Fever *During Business Hours Contact: office *After Business Hours Contact: 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
== END 2017-02-05 17:15 | disposition home or self-care (01) | DRG 669 ==
LOC: ED 02:01 → SRG 04:39
PROVIDERS: ADMIT Internal Medicine; ATTEND Internal Medicine